=== PATIENT | female | born 1955 | race Caucasian/White ===

== ENCOUNTER 2019-03-20 09:47 | Day surgery (SDC) | payer MEDICARE, OTHER, SELFPAY ==
--- NOTE | 2019-03-20 | PATH_ITS ---
[facility] Accession Number: [id number] . 01 Material submitted: . endometrium - ENDOMETRIAL POLYP AND CURRETAGE . 02 Diagnosis: Endometrial Polyp, Curettage: Consistent with endometrial polyp. No evidence of atypical hyperplasia or malignancy. [facility]/03/22/2019 . 02 Electronically signed: . Clif Martino MD, PhD, Pathologist NPI- [id number] . 01 Gross description: . ENDOMETRIAL POLYP AND CURRETAGE: Received in formalin are minute fragments of mucoid and hemorrhagic material measuring 1.0 x 0.8 x 0.5 cm in aggregate. Submitted in toto in 1 cassette. /[facility] /[facility] . 02 Pathologist provided ICD-10: N84.0 . 02 CPT . 383896 Performed at: [address] [facility] [address] [id number] MD Mike Webster MD Phone: [phone] Performed at: 02 [facility] [address] [place], [place] [id number] MD Apple Arrington MD Phone: [phone]
[2019-03-20 12:12] VITALS: BP 126/65; PULSE 74; RESP 16; TEMP 37.3; O2SAT 97
[2019-03-20] MEDS: LACTATED RINGERS 1,000 ML 42 ML IV (12:25)
[2019-03-20 12:34] VITALS: BMI 31.9
--- NOTE | 2019-03-20 12:50 | PM.GYNHP.1 ---
History of Present Illness Reason for admission: vaginal bleeding (Postmenopausal) Narrative: Aide Najera is a 64 year old female with postmenopausal bleeding for hysteroscopy D&C [facility] Medical History (Updated 03/20/19 @ 12:53 by Arlene Ulloa, RN) Asthma (Acute) Ataxia of both legs (Acute) Cervical polyp (Acute) Constipation (Acute) Depression (Acute) Diverticulitis (Acute) Former smoker (Acute) History of endometrial biopsy (Acute) History of pneumonia (Acute) Hyperlipidemia (Acute) Hypertension (Acute) Multiple sclerosis (Acute) Postmenopausal bleeding (Acute) Urinary incontinence (Acute) Uterine fibroid (Acute) Surgical History (Updated 03/20/19 @ 12:54 by Arlene Ulloa RN) History of arthroscopy of left knee (Acute) History of colonoscopy (Acute 12/23/09) Social History household members: none Smoking Status: Former smoker Social History household members: none Smoking Status: Former smoker Meds Home Medications Medication Instructions Recorded Confirmed Type doxepin 100 mg PO BEDTIME #0 11/10/12 03/20/19 History venlafaxine [Effexor XR] 1 tab PO DIRECTED #0 11/10/12 03/20/19 History gabapentin [Neurontin] 300 mg PO HS #0 03/03/13 03/20/19 History modafinil 200 mg PO DAILY 03/20/19 03/20/19 History ocrelizumab 600 mg IV [id number] 03/20/19 03/20/19 History oxybutynin chloride 5 mg PO QID 03/20/19 03/20/19 History Allergies Allergy/AdvReac Type Severity Reaction Status Date / Time From BETASERON Allergy Mild Depression Uncoded 03/20/19 12:28 From COPAXONE AdvReac Mild Redness @ Uncoded 03/20/19 12:28 injection site occasionally Review of Systems Review of Systems All systems reviewed & are unremarkable except as noted in HPI and below Exam Vital Signs (past 8 hours): - 03/20/19 12:12 Temperature 99.1 F Pulse Rate 74 Respiratory Rate 16 Blood Pressure 126/65 Pulse Oximetry 97 Oxygen Delivery Method Room Air Narrative Exam Narrative: Chief Complaint: Postmenopausal bleeding Principal diagnosis: Postmenopausal bleeding Planned procedure: Hysteroscopy D&C History of present illness: Patient is a 63-year-old who had a 24 hr episode of postmenopausal bleeding. She had some lower abdominal cramping at the time. She underwent an ultrasound that showed small uterine fibroids and a thin endometrium but finding suspicious for a 5-6 mm endometrial polyp. Discussed with the patient options of monitoring with a follow-up ultrasound in 6 months as long she had no further bleeding, office endometrial biopsy, hysteroscopy D&C with removal of the presumed polyp. Patient opted for surgical procedure. Past medical history: Patient has MS Physical exam: HEENT exam within normal limits. Lungs are clear to auscultation and percussion. Heart is regular rate and rhythm no S3-S4 or murmurs. Abdomen is soft, nontender, no palpable organomegaly. Normal external genitalia, vagina, cervix. Uterus is not enlarged, nontender. No adnexal masses or tenderness. Patient is using a walker. Assessment & Plan (1) Postmenopausal bleeding: Current visit: Yes Status: Acute Assessment & Plan narrative: Patient with postmenopausal bleeding here for hysteroscopy D&C. Consent form was reviewed with the patient and signed. Risk of perforation, damage to internal structures, low risk for infection discussed with the patient. Consent form was signed and questions answered.
--- NOTE | 2019-03-20 13:45 | PM.PREOP ---
Pre-operative Note Interval Note History & Physical reviewed/Exam performed by Physician: Yes Changes to H&P: No
--- NOTE | 2019-03-20 13:53 | SUR.OPER ---
Lithotomy on padded OR bed, head on pillow, arms secured on padded arm boards at <90 degrees abduction. Legs secured in padded yellow fins stirrups.
[2019-03-20 14:39] VITALS: BP 138/57; PULSE 70; RESP 11; TEMP 36.2; O2SAT 96
--- NOTE | 2019-03-20 14:41 | PM.OP.1 ---
Operative Date/Time/Diagnoses Date of procedure: 03/20/19 Time of procedure: 14:41 Pre-op diagnosis: Postmenopausal bleeding with polyp on ultrasound Post-op diagnosis: same Procedure & Clinicians Procedure: Hysteroscopy with resection of polyps and endometrial curettage Same procedure as scheduled: Yes Indications: Postmenopausal bleeding with polyp seen on ultrasound Surgeon: Digna Terrazas Click Yes if Unassisted: Yes Anesthesia Type: General Operative Notes Findings: Very thin endometrium with two polyps, 1 near the right tubal ostia and the other at the internal os on the posterior wall Closure Type: not applicable Specimen(s): other (Two polyps and the endometrial curettage) Estimated Blood Loss (mL): 0 Blood products transfused: none Procedure in detail: The patient was brought to the operating room where she underwent general anesthesia. She was placed in low stirrups She was prepped and draped in usual sterile fashion with compression stockings on, warming in place, no antibiotics were indicated. Her bladder was drained with in and out catheter. A single-tooth tenaculum was placed on the anterior lip of the cervix and the uterus dilated to #8 Hegar dilator. The hysteroscope was placed into the uterus with a sorbitol solution running and under constant suction. The resecting loop set at 80 W of cutting was used to resect the polyps down to the level of the endometrium. A endometrial curettage was performed. The polyps and the endometrial curettage was sent to pathology. The patient went to recovery room in good condition counts of instruments and sponges were correct. The sorbitol solution I=O approximately 1000 mL. Complications: none Condition: stable Disposition: same day surgery Plan for aftercare: Treatment and follow-up based on biopsy results
[2019-03-20 14:44] VITALS: BP 133/59; PULSE 74; RESP 12; O2SAT 95
--- NOTE | 2019-03-20 14:45 | P.OP_ITS ---
Operative Date/Time/Diagnoses Date of procedure: 03/20/19 Time of procedure: 14:41 Pre-op diagnosis: Postmenopausal bleeding with polyp on ultrasound Post-op diagnosis: same Procedure & Clinicians Procedure: Hysteroscopy with resection of polyps and endometrial curettage Same procedure as scheduled: Yes Indications: Postmenopausal bleeding with polyp seen on ultrasound Surgeon: Digna Terrazas Click Yes if Unassisted: Yes Anesthesia Type: General Operative Notes Findings: Very thin endometrium with two polyps, 1 near the right tubal ostia and the other at the internal os on the posterior wall Closure Type: not applicable Specimen(s): other (Two polyps and the endometrial curettage) Estimated Blood Loss (mL): 0 Blood products transfused: none Procedure in detail: The patient was brought to the operating room where she underwent general anesth esia. She was placed in low stirrups She was prepped and draped in usual sterile fashion with compression stockings on, warming in place, no antibiotics were indicated. Her bladder was drained with in and out catheter. A single- tooth tenaculum was placed on the anterior lip of the cervix and the uterus dilated to #8 Hegar dilator. The hysteroscope was placed into the uterus with a sorbitol solution running and under constant suction. The resecting loop set at 80 W of cutting was used to resect the polyps down to the level of the endometrium. A endometrial curettage was performed. The polyps and the endometrial curettage was sent to pathology. The patient went to recovery room in good condition counts of instruments and sponges were correct. The sorbitol solution I=O approximately 1000 mL. Complications: none Condition: stable Disposition: same day surgery Plan for aftercare: Treatment and follow-up based on biopsy results
[2019-03-20 14:49] VITALS: BP 124/58; PULSE 73; RESP 13; O2SAT 96
[2019-03-20 15:09] VITALS: BP 108/64; PULSE 72; RESP 18; TEMP 36.6; O2SAT 98
--- NOTE | 2019-03-20 15:39 | SUR.PHASEII ---
1458 Assumed care, patient ambulated to the bathroom using her walker; stable on feet: voided w/o difficulty. Scant vag flow. Desires to go home. Declines fluids (has frequency/incon and [place] States that she has fluids in the car.)
--- NOTE | 2019-03-20 15:41 | SUR.PHASEII ---
1510 VSS, IV dc'd; clothing given.
--- NOTE | 2019-03-20 15:49 | SUR.PHASEII ---
correction on IV fluid - DC'd 1515, infusion ended
== END 2019-03-20 15:28 | disposition home or self-care (01) ==
PROVIDERS: Visit Provider Specialist
PROC: 0UDB8ZZ Extraction of Endometrium, Via Natural or Artificial Opening Endoscopic (ICD-10-PCS; CPT 58558; principal; 2019-03-20 12:15)
DX: N84.0 Polyp of corpus uteri (principal); J45.909 Unspecified asthma, uncomplicated; E78.5 Hyperlipidemia, unspecified; G35 Multiple sclerosis; R32 Unspecified urinary incontinence
CPT/HCPCS: 58558; 88305; J1100; J2405; J2704; J3010

== ENCOUNTER → 2019-08-03 10:52 | Outpatient (CLI) | payer MEDICARE, OTHER, SELFPAY ==
--- NOTE | 2019-08-03 | DI.MG.S_ITS ---
BILATERAL DIGITAL SCREENING MAMMOGRAM 3D/2D WITH CAD: 08/03/2019 CLINICAL: Routine screening. Family history of breast cancer. Comparison is made to exams dated: 02/24/2016 mammogram, 09/14/2014 mammogram, 06/19/2013 mammogram, and 05/24/2012 mammogram - [facility]. There are scattered fibroglandular elements in both breasts. Current study was also evaluated with a Computer Aided Detection (CAD) system. No significant masses, calcifications, or other findings are seen in either breast. There has been no significant interval change. IMPRESSION: NEGATIVE There is no mammographic evidence of malignancy. A 1 year screening mammogram is recommended. This exam was interpreted at Station ID: [id number]. NOTE: For mammograms, a report in lay terms will be sent to the patient. Approximately 15% of breast malignancies will not be visualized mammographically. In the management of a palpable breast mass, a negative mammogram must not discourage biopsy of a clinically suspicious lesion. Electronically Signed By: James mcdermott/gloria:08/04/2019 04:23:10 letter sent: Normal Exam ACR BI-RADS Category 1: Negative 3341F
== END ==
PROVIDERS: Visit Provider Family Medicine
DX: Z12.31 Encounter for screening mammogram for malignant neoplasm of breast (principal); Z80.3 Family history of malignant neoplasm of breast
CPT/HCPCS: 77063; 77067

== ENCOUNTER 2024-06-11 10:51 | Inpatient (IN) | payer MEDICARE, OTHER, SELFPAY ==
[2024-06-11] VITALS (13 sets, daily range): BP systolic 119–160; BP diastolic 42–79; PULSE 72–93; RESP 11–22; TEMP 36.4–37.2; O2SAT 93–100; BMI 30.4
--- NOTE | 2024-06-11 | DI.RAD.S_ITS ---
PROCEDURE: XR HIP W PEL IF DONE LT 2V INDICATIONS: INTRAMEDULLARY NAILING OF LT HIP TECHNIQUE: 5 low resolution intraoperative fluoroscopic spot films COMPARISON: None. FINDINGS: Sequential placement femoral nail and neck screw transfixing and intertrochanteric fracture. IMPRESSION: Fluoroscopic guidance Approved by: Jonnie Pitts M.D. on 06/11/2024 at 15:06
--- NOTE | 2024-06-11 12:09 | PC.NURSE ---
Day shift: Pt not in room or at this hospital at this time (approx 1200). ETA 1300.
--- NOTE | 2024-06-11 12:31 | PC.NURSE ---
Day shift: Pt in room at approx 1225.
--- NOTE | 2024-06-11 12:34 | PM.HP.1 ---
History of Present Illness History of Present Illness Date Patient Seen: 06/11/24 Time Patient Seen: 13:00 Date of Onset of Symptoms: 06/11/24 Chief complaint: L hip fracture Narrative: 69-year-old woman with multiple sclerosis, living independently in [place], normal using a 4 wheel walker, got up this morning to go to the bathroom without using her walker and fell on her left side, without known loss of consciousness or other injuries. She was able to scoot herself to her phone and called 911. She reported left hip as well as low back pain. She was given 50 mcg of fentanyl IV and brought to the emergency department in [place] where she was found to have a proximal left femur fracture. She was transferred to this hospital for surgical management. On arrival she denies other complaints, specifically denying chest pain, shortness of breath, abdominal pain or other recent infectious symptoms. She has a history of MS stating to age 32 when she presented with visual disturbances, and states she has global fatigue and weakness without specific deficits. [facility] Medical History Depression Urinary incontinence Constipation Diverticulitis History of pneumonia Hypertension Hyperlipidemia Asthma Ataxia of both legs Uterine fibroid Postmenopausal bleeding History of endometrial biopsy Multiple sclerosis Cervical polyp Former smoker Surgical History History of arthroscopy of left knee History of colonoscopy (12/23/09) Social History household members: none Smoking Status: Former smoker alcohol intake: never Meds Home Medications and Allergies Home Medications Medication Instructions Recorded Confirmed Type doxepin 100 mg capsule 100 mg PO BEDTIME ##0 11/10/12 06/11/24 History gabapentin 300 mg capsule 300 mg PO TID PRN Pain (Scale 03/03/13 06/11/24 History (Neurontin) Score 4-6) ##0 modafinil 200 mg tablet 200 mg PO DAILY PRN mobility 03/20/19 06/11/24 History oxybutynin chloride 5 mg tablet 5 mg PO BID 03/20/19 06/11/24 History baclofen 10 mg tablet 20 mg PO BID PRN Spasms 06/11/24 06/11/24 History venlafaxine 150 mg 150 mg PO DAILY 06/11/24 06/11/24 History capsule,extended release 24 hr Allergies Allergy/AdvReac Type Severity Reaction Status Date / Time glatiramer (copolymer 1) AdvReac Mild Redness @ Verified 06/11/24 11:09 [From Copaxone] injection site occasionally interferon beta-1b AdvReac Mild Depression Verified 06/11/24 11:09 [From Betaseron] Review of Systems Review of Systems ROS: Yes All systems reviewed with the patient and are negative except as otherwise documented Exam Narrative Exam Narrative: GENERAL: This is a well-nourished, well-developed patient, in no apparent distress. HEAD: Atraumatic. Normocephalic. No temporal or scalp tenderness. EYES: Pupils equal round and reactive. Extraocular motions intact. No scleral icterus. No injection or drainage. ENT: Mucous membranes pink and moist. NECK: Trachea midline. No JVD, bruits or lymphadenopathy. Supple, nontender, no meningeal signs. CARDIOVASCULAR: Regular rate and rhythm without murmurs, gallops, or rubs. RESPIRATORY: Clear to auscultation anteriorly. GASTROINTESTINAL: Abdomen soft, non-tender, nondistended. EXTREMITIES: No clubbing, cyanosis, or edema. MUSCULOSKELETAL: Left leg shortened and externally rotated. BACK: Nontender without deformity or crepitance. No flank tenderness. NEUROLOGIC: Alert, oriented, speech fluent, full upper and lower motor strength, no focal deficits evident, distal neurovascular status intact in left leg. DERMATOLOGIC: No rashes or skin lesions. Objective ECG Impression: Normal sinus rhythm at 78 beats per minute, possible left atrial enlargement, no ischemic changes. Normal EKG Imaging Left femur two view, pelvis, hip x-ray 06/11/2024:: Radiologist's impression: There is an acute displaced intertrochanteric fracture of the proximal left femur with a displaced fracture fragment measuring approximately 4.2 cm. There is no left hip dislocation. 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 impression: acute fracture of the proximal left femur as detailed above Chest x-ray: Radiologist's impression: The lungs are clear. The cardiomediastinal silhouette is unremarkable. There is no pneumothorax. There is no acute osseous abnormality. impression: No acute cardiopulmonary process CT lower extremity left without contrast:: Radiologist's impression: Again identified is an acute comminuted displaced fracture of the proximal left femur similar to prior x-ray. There is no dislocation. There are degenerative changes of the patient's left hip. impression: Acute fracture of the proximal left femur as previously described. Labs Labs: Moderate multilevel degenerative changes are noted in the patient's lumbar spine. There is facet arthrosis throughout the lower lumbar segments. There is no acute compression fracture. No significant malalignment. impression: 1. No acute fracture 2. Moderate multilevel degenerative changes are noted of the patient's lumbar spine Assessment & Plan Assessment & Plan narrative: 1. Acute fracture of the proximal left femur due to ground level fall. Operative repair per Orthopedics today. She is medically cleared as low risk. 2. Multiple sclerosis. Clinically stable with high fall risk. 3. Gait instability with repeated falls due to 2. Consult physical therapy postoperatively. 4. Depression. Continue routine medication. 5. DVT prophylaxis: Postoperative Lovenox is advised. 6. Code status: Full code. This is reviewed with the patient on admission who clearly states this medical preference. Time-Based Coding :: [TOTAL MINUTES] spent with patient and on the chart (including review of chart, obtaining history, exam, reviewing outside data, placing orders, documenting exam and treatment plan, and counseling patient) on [DATE]. Quality VTE Deep Vein Thrombosis/Pulmonary Embolism Present on Admission: No MIPS - Admit I confirm the patient?s Advance Care Plan is present, Code status is documented, Surrogate decision maker is in patient?s record [If Yes, STOP here]: Yes MIPS - Meds 'Current medications' to include all prescriptions, [id number] products, herbals, cannabis/cannabidiol products, and vitamin/mineral/dietary (nutritional) supplements. I have utilized all available resources to obtain, update, or review the patient?s current medications. [If Yes, STOP here]: Yes PROFEE Charge Codes Initial inpatient/observation care: [id number]
[2024-06-11] MEDS: LACTATED RINGERS 1,000 ML 100 ML IV ×2 (12:48→17:25)
[2024-06-11] MEDS: HYDROMORPHONE 0.5 MG INJ IV (12:51)
--- NOTE | 2024-06-11 13:11 | SUR.OPER ---
Supine on padded Geneva table with bilateral legs secured in padded positioning boots and suspended in positioning spars, operative leg in traction per surgeon. Head on one pillow. Arm on non-operative side secured on padded armboard <90 degrees abduction. Arm on operative side padded and resting across chest then secured with tape over sheet. Padded perineal post in place per surgeon.
[2024-06-11] MEDS: LACTATED RINGERS 1,000 ML 42 ML IV ×2 (13:42→15:52)
--- NOTE | 2024-06-11 13:49 | P.CONS_ITS ---
History of Present Illness Consult details Date Patient Seen: 06/11/24 Time Patient Seen: 13:49 Chief complaint: L hip fracture Reason for consult: Left hip fracture Requesting provider: Fam Whitmore Narrative: 69-year-old female with medical history including multiple sclerosis and asthma had a ground level fall early this morning [place] home [place]. She was unable to ambulate. She was brought to [facility] emergency room diagnosed with a displaced left intertrochanteric hip fracture. She was transferred to [facility] due to other hospital on diversion. And presents today for care. She denies any other injury when she fell denies any loss of consciousness or head injury. She has not had any recent flares. She endorses some dry throat and cough. No fevers or chills. She typically uses a walker for ambulation and has for years. She does not have any major heart or lung problems. She does not take any blood thinners. She has been NPO since before midnight. Meds Home Medications and Allergies Home Medications Medication Instructions Recorded Confirmed Type doxepin 100 mg capsule 100 mg PO BEDTIME ##0 11/10/12 06/11/24 History gabapentin 300 mg capsule 300 mg PO TID PRN Pain (Scale 03/03/13 06/11/24 History (Neurontin) Score 4-6) ##0 modafinil 200 mg tablet 200 mg PO DAILY PRN mobility 03/20/19 06/11/24 History oxybutynin chloride 5 mg tablet 5 mg PO BID 03/20/19 06/11/24 History baclofen 10 mg tablet 20 mg PO BID PRN Spasms 06/11/24 06/11/24 History venlafaxine 150 mg 150 mg PO DAILY 06/11/24 06/11/24 History capsule,extended release 24 hr Allergies Allergy/AdvReac Type Severity Reaction Status Date / Time glatiramer (copolymer 1) AdvReac Mild Redness @ Verified 06/11/24 11:09 [From Copaxone] injection site occasionally interferon beta-1b AdvReac Mild Depression Verified 06/11/24 11:09 [From Betaseron] Review of Systems Review of Systems Narrative: Cough, left hip pain ROS: Yes All systems reviewed with the patient and are negative except as otherwise documented Exam Vital Signs (past 8 hours): - 06/11/24 10:59 06/11/24 13:21 06/11/24 13:30 Temperature 98.2 F 98.2 F Pulse Rate 72 72 Respiratory Rate 18 17 Blood Pressure 128/61 128/61 Pulse Oximetry 98 98 Oxygen Delivery Method Room Air Oxygen Flow Rate 0 0 06/11/24 13:39 Temperature 97.6 F Pulse Rate 72 Respiratory Rate 16 Blood Pressure 119/55 L Pulse Oximetry 98 Oxygen Delivery Method Room Air Oxygen Flow Rate Oxygen Delivery Method Room Air Oxygen Flow Rate 0 Narrative Exam Narrative: Alert oriented no acute distress lying in the hospital bed. Heart regular rate and rhythm Lungs clear slight cough Left lower extremity shortened and externally rotated. Dorsiflexion plantar flexion intact. Brisk capillary refill. Pain around the hip. Remainder of motor exam deferred due to known hip fracture. Right lower extremity is benign demonstrates dorsiflexion plantar flexion. Moving bilateral upper extremities without limitation. Laurent in place. Objective Imaging Outside x-rays were reviewed two views of the hip AP and lateral demonstrate displaced intertrochanteric hip fracture with involvement of the lesser t: My impression: Outside x-rays were reviewed two views of the hip left AP and lateral demonstrate displaced intertrochanteric hip fracture with involvement of the lesser trochanter. PFSH Medical History Depression Urinary incontinence Constipation Diverticulitis History of pneumonia Hypertension Hyperlipidemia Asthma Ataxia of both legs Uterine fibroid Postmenopausal bleeding History of endometrial biopsy Multiple sclerosis Cervical polyp Former smoker Surgical History History of arthroscopy of left knee History of colonoscopy (12/23/09) Social History household members: none Tobacco & Substance Use Smoking Status: Former smoker alcohol intake: never Assessment & Plan Assessment and plan (1) Hip fracture, left: Qualifiers: Encounter type: initial encounter Fracture type: closed Qualified Code(s): S72.002A - Fracture of unspecified part of neck of left femur, initial encounter for closed fracture Status: Acute Plan Displaced left intertrochanteric hip fracture. Patient was transferred for surgical treatment. The risks and benefits of surgery were discussed. Informed consent was signed. The patient was indicated for operative fixation of her left hip fracture in order to allow immediate weight-bearing and mobilization help avoid the morbidity mortality associated with prolonged bed rest. We discussed risks of bleeding, blood clots, infection, nonunion, malunion, persistent pain, posttraumatic arthritis, stroke heart attack , pneumonia. Consent was signed. Plan OR today. Assessment & Plan narrative: High-level medical decision-making. Decision for inpatient admission for surgical treatment of hip fracture, major orthopedic surgery. Due to patient's previous use of assistive devices postoperatively, the same expected postoperatively. Time-Based Coding :: [TOTAL MINUTES] spent with patient and on the chart (including review of chart, obtaining history, exam, reviewing outside data, placing orders, documenting exam and treatment plan, and counseling patient) on [DATE].
[2024-06-11] MEDS: CEFAZOLIN 2 GM/100 ML PREMIX 100 ML IV ×2 (14:10→21:17)
[2024-06-11] MEDS: TRANEXAMIC ACID 1,000 MG in SODIUM CHLORIDE 0.9% 100 ML 200 MG IV (14:10)
[2024-06-11] MEDS: BUPIVACAINE 0.25% (PF) 30 ML, EPINEPHrine 0.15 MG INJ (14:48)
--- NOTE | 2024-06-11 15:22 | PM.OP.1 ---
Operative Date/Time/Diagnoses Date of procedure: 06/11/24 Time of procedure: 15:22 Pre-op diagnosis: Left intertrochanteric hip fracture Post-op diagnosis: same Procedure & Clinicians Procedure: Fixation left intertrochanteric hip fracture with cephalomedullary nail CPT code 56911, left Same procedure as scheduled: Yes Indications: 69-year-old female with ground level fall and displaced intertrochanteric femur fracture. Indicated for surgical treatment. The risks and benefits of the procedure have been discussed with the patient and given the opportunity to ask questions. The risks of surgery include but are not limited to infection, malunion, nonunion, persistence of pain, damage to nerves and blood vessels, posttraumatic arthritis, DVT, PE, cardiopulmonary complications and . The patient expressed a thorough understanding of the risks and benefits of surgery and has elected to proceed. Consent was signed. Surgeon: Alysha Elizondo Click Yes if Unassisted: Yes Anesthesia Type: General and Local Operative Notes Findings: Displaced intertrochanteric hip fracture, left Closure Type: primary Specimen(s): none sent Prosthetic devices, grafts, tissues, transplants, or devices: Soto and nephew InterTAN esteban 10 x 18 Screw combination 100/95 Distal interlock screw 35 x 5 Estimated Blood Loss (mL): 100 Blood products transfused: none Tourniquet time (min): 0 Procedure in detail: Procedure cephalomedullary nail intertrochanteric hip fracture the CPT code 21522 Side: Left Implant Soto and Nephew 11.5 x 18 cm cephalomedullary nail intertan Procedure: The patient was seen and the site of surgery was marked in the preoperative area. This was the left hip. Patient was brought to the operating room and placed on the operative table and general anesthesia was administered. The patient was positioned on the fracture table in standard fashion with a well-padded boots and a padded peroneal post. An SCD was on the contralateral leg. A formal time-out was called to confirm the patient's side and site of surgery administration of preoperative antibiotics. 1 g of TXA was given for hemostasis. All were in agreement. The operative leg was then gently manipulated under fluoroscopic guidance to obtain a closed reduction in near anatomic alignment. At this point the operative extremity was prepped and draped in the standard sterile manner. The starting point was marked out using fluoroscopic guidance and marked on the skin. A guidewire was placed percutaneously and the starting point was obtained. Incision was made over the guidewire. An opening drill was inserted to the level of the lesser trochanter. The opening Reamer and guidewire were then removed. An 18 cm cephalomedullary nail was selected. The 10 x 18 cm nail was then slid into the canal. The nail was advanced to the proper depth and rotation. The guide for the cephalomedullary screw was then inserted into the external handle. An incision was made and the guide was placed down to the bone. A guidewire was placed to the proper depth into the femoral head and this was confirmed on AP and lateral imaging. The tip apex distance was evaluated and appropriate. This was measured. Next the outer cortex was drilled for the interlocking screw and the anti rotation bar was placed. The cephalomedullary screw length was then measured off the drill again. A 100 mm lag screw was selected and the corresponding interlocking compression screw. A guidewire was then over drilled and the lag screw placed. The anti rotation bar was removed and then the locking compression screws were placed and confirmed on biplanar fluoroscopy. The integrated compression screw was tightened. Attention was turned to the distal interlock. This was placed with the guide in the standard technique. AP and lateral images were captured in the or confirming alignment hardware placement. Wounds were irrigated and closed in layers with 0 Vicryl in the deep fascia. 2- 0 in the subcutaneous tissue and benjamin in the skin. 0.25% Marcaine with epinephrine was injected into the incision sites for local anesthetic. Sterile dressings were applied. There no immediate complications. Surgical counts were correct. The patient tolerated the procedure well was taken to recovery room for formal radiographs. Postoperative plan. Weightbear as tolerated to the surgical extremity. Work with physical therapy and occupational therapy. Discharge by primary team. Likely detention. Monitor hemoglobin and hematocrit postoperatively may require transfusion if needed. Encourage incentive spirometry. SCDs and Lovenox for DVT prophylaxis. Complications: none Post-operative Condition: stable Disposition: PACU Plan for aftercare: Weightbear as tolerated left lower extremity. Lovenox 40 mg subQ x4 weeks for DVT prophylaxis unless mobilizing well then aspirin 81 mg b.i.d. would be a reasonable alternative. Dispo per primary. Follow up [facility] in 2 weeks for staple removal and repeat x-rays. Has a waterproof Aquacel dressing in place. May shower with the dressing. Change if needed or saturated.
[2024-06-11] MEDS: HYDROMORPHONE 1 MG INJ IV ×2 (15:35→15:45)
[2024-06-11] MEDS: ONDANSETRON 4 MG/2 ML INJ IV (15:35)
[2024-06-11] MEDS: OXYCODONE IR 5 MG TABLET PO ×2 (15:47→21:17)
[2024-06-11] MEDS: IBUPROFEN 400 MG TABLET PO ×3 (17:25→23:56)
[2024-06-11] MEDS: ACETAMINOPHEN 325 MG TABLET 650 MG PO ×2 (17:25→21:19)
[2024-06-11] MEDS: SENNOSIDES 8.6 MG TABLET 17.2 MG PO (20:11)
[2024-06-11] MEDS: DOCUSATE 100 MG CAPSULE PO (20:11)
[2024-06-11] MEDS: OXYBUTYNIN 5 MG TABLET PO (20:11)
[2024-06-11] MEDS: BACLOFEN 10 MG TABLET 20 MG PO (23:56)
[2024-06-12 00:09] VITALS: BP 119/32; PULSE 85; RESP 18; TEMP 37.8; O2SAT 95
[2024-06-12] MEDS: IBUPROFEN 400 MG TABLET PO ×5 (04:36→20:18)
[2024-06-12] MEDS: ACETAMINOPHEN 325 MG TABLET 650 MG PO ×4 (04:37→22:28)
[2024-06-12] MEDS: OXYCODONE IR 5 MG TABLET PO ×2 (04:37→08:40)
[2024-06-12] MEDS: CEFAZOLIN 2 GM/100 ML PREMIX 100 ML IV (05:33)
[2024-06-12 06:07] LABS: Add Manual Diff / Slide Review NO; Basophils Absolute Auto 0 /uL (0-100); Basophils Percent Auto 0.1 % (0-2); Eosinophils Absolute Auto 0 /uL (0-450); Eosinophils Percent Auto 0.1 % (2-4); Lymphocytes Absolute Auto 1500 /uL (1100-4500); Lymphocytes Percent Auto 12.2 % (25-40); Mean Corpuscular HGB Conc 33.6 % (30-36); Mean Corpuscular Hemoglobin 30.3 PG (26-34); Mean Corpuscular Volume 90.3 fL (80-100); Monocytes Absolute Auto 1300 /uL (0-900); Monocytes Percent Auto 10.5 % (3-14); Neutrophils Absolute Auto 9200 /uL (1500-7000); Neutrophils Percent Auto 77.1 % (50-75); Platelet Count 193 X10^3/uL (150-400); Red Blood Cell Count 2.98 X10^6/uL (4.0-5.2); Red Cell Distribution Width 14.7 % (11.6-14.8); White Blood Cell Count 11.9 X10^3/uL (4.5-11.0)
[2024-06-12 06:27] LABS: BUN Creatinine Ratio 26.4 (6-22); Blood Urea Nitrogen 19 mg/dL (7-17); Calcium 8.1 mg/dL (8.4-10.2); Carbon Dioxide 26 mmol/L (22-32); Chloride 112 mmol/L (98-107); Estimated Glomerular Filt Rate > 60 mL/min (>60); Glucose 119 mg/dL (80-110); HEMOLYSIS < 15 (0-50); Potassium 4.2 mmol/L (3.4-5.1); Sodium 138 mmol/L (137-145)
[2024-06-12 08:00] VITALS: BP 131/60; PULSE 79; RESP 18; TEMP 37; O2SAT 97
[2024-06-12] MEDS: VENLAFAXINE ER 75 MG CAP 150 MG PO (08:39)
[2024-06-12] MEDS: DOCUSATE 100 MG CAPSULE PO ×2 (08:40→20:18)
[2024-06-12] MEDS: ENOXAPARIN 40 MG/0.4 ML SYRINGE SUBCUT (08:40)
[2024-06-12] MEDS: OXYBUTYNIN 5 MG TABLET PO ×2 (08:40→20:19)
[2024-06-12] MEDS: polyethylene glycoL 3350 17 GM POWD.PACK PO (08:41)
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
--- NOTE | 2024-06-12 11:00 | PT.IIE ---
Current Diagnoses Fracture of unspecified part of neck of left femur, initial encounter for closed fracture (06/11/24) Surgery Performed Operation Date: 06/11/24 15:00 Actual Procedures p Intramedullary Nailing Femur(Left) - Alysha Elizondo MD Surgical History (Last Reviewed 06/11/24 @ 13:50 by Alysha Elizondo MD) History of arthroscopy of left knee History of colonoscopy (12/23/09) Medical History (Last Reviewed 06/11/24 @ 13:50 by Alysha Elizondo MD) Asthma Ataxia of both legs Cervical polyp Constipation Depression Diverticulitis Former smoker History of endometrial biopsy History of pneumonia Hyperlipidemia Hypertension Multiple sclerosis Postmenopausal bleeding Urinary incontinence Uterine fibroid Physical Therapy Inpatient Evaluation/Re-Eval M1 PT/OT-IP Prior Functional Status Start: 06/12/24 10:41 Freq: NEEDED Status: Active Protocol: Document 06/12/24 10:15 MB (Rec: 06/12/24 10:59 MB [id number]) Medical Review Prior Functional Status Medical History Reviewed Yes Diet/Fluid Consistency Regular Communication Pt has some challenges communicating what she is feeling as far as pain, questions about other previous falls Mobility and Gait Gait trains in home with 4WW and takes taxi to store and uses cart, pt does not drive Activities of Daily Living and IADL's Pt reports mod I with ADLs, see OT note for any other details Social History Household Members none Living Arrangements House Number of Floors (Floors) One Floor Number of Stairs To Enter/Railing? Ramp to enter Home Environment Walk in Shower,Tub/Shower Home Equipment Four Wheel Walker,Shower Seat with Backrest,Hand Held Shower ,Grab Bars In Shower Additional Social History Comment Pt is on disability M2 PT-IP Current Condition Start: 06/12/24 10:41 Freq: NEEDED Status: Active Protocol: Document 06/12/24 10:15 MB (Rec: 06/12/24 10:59 MB [id number]) Physical Therapy Current Condition Current Condition Evaluation Date 06/12/24 Treatment Diagnosis Fall, left intertrochanteric fracture and nailing M3 PT-IP Subjective Start: 06/12/24 10:41 Freq: NEEDED Status: Active Protocol: Document 06/12/24 10:15 MB (Rec: 06/12/24 10:59 MB [id number]) Subjective Physical Therapy Visit Type Type Initial Evaluation Visit Start Time 10:15 Visit Stop Time 10:30 Number of BRAZER HELPER INDUCTION Visits 0 Physical Therapy Visit Comments Patient Comments Pt is agreeable to therapy, occ appears like she may cry, is not very communicative about what she is feeling at times. Therapy Pain Assessment Pain When Pain Assessed At Rest Pain Present Pain Present Pain Reported Location Left Hip Intensity 2 Scale Used Numeric (0 - 10) Pain Management Techniques Distraction,Re-positioning M4 PT-IP Mobility and Gait Start: 06/12/24 10:41 Freq: NEEDED Status: Active Protocol: Document 06/12/24 10:15 MB (Rec: 06/12/24 10:59 MB [id number]) PT-Bed Mobility Assessment Rolling Level of Assist Minimal Assistance,1 Person Assistance Supine to Sit Supine to Sit Minimal Assistance,1 Person Assistance,Bedrails Scooting Scooting to Edge of Bed Moderate Assistance PT-Transfer Assessment Sit to and From Stand Sit to and from Stand Moderate Assistance,2 Person Assistance,Use of Upper Extremities Equipment Transfer Assistive Device Gait Belt,Front Wheeled Walker Orthotic/Prosthetic Devices or Brace: No Transfers Transfer Destination Chair Transfer Technique Squat Pivot Transfer Ability Level of Assist Moderate Assistance,2 Person Assistance,Use of Upper Extremities Comments Mobility Comments Pt has dysmetric movements in LUE greater than LEs and core muscles with all mobility that could be described as mild chorea-like movements. Pt frequently lets go of bed rail and walker and tends to have poorly controlled core and balance awareness in sitting and standing at walker. She partially flings back posteriorly in sitting x2 when letting go of bed hand rest to left and RW. Similarly, she sits down without warning on bed without hand support x1. Pt cannot demonstrate lifting left foot to advance forward today, scoot side step to right x1 with RW and +2 max A. Squat transfer to right bed to chair at end of treatment. Poor ability to scoot in chair , decreased awareness of hand placement and using hands to scoot back, more noticeable left hand and OT assists with lifting left leg for scooting back in chair Gait Assessment Gait Gait Assistance Required: Maximum Assistance,2 Person Assist Distance (Feet) 1 Able to Maintain Weight Bearing Status Yes During Gait Assistive Devices Assistive Device Gait Belt,Front Wheeled Walker Orthotic/Prosthetic Devices or Brace: No Gait Deviations General Gait Pattern Antalgic,Ataxic,Decreased Stride Length,Decreased Feet Clearance,Flexed Trunk,Step-to Gait,Wide Based Gait Factors Limiting Gait Function Factors Limiting Gait Function Abnormal Tonal Influences, Decreased Activity Tolerance, Decreased Strength,Difficulty Following Directions, Incoordination,Limited Range of Motion,Pain,Poor Balance, Poor Safety Awareness Comments Gait Comments See comments above, very poor scooting steps to the right PT-Balance Assessment Sitting Balance and Reactions Static Sitting Balance Ability Poor Dynamic Sitting Balance Ability Poor Standing Balance and Reactions Static Standing Balance Ability Poor Dynamic Standing Balance Ability Poor Device Used RW M5 PT-IP Objective Assessments Start: 06/12/24 10:41 Freq: NEEDED Status: Active Protocol: Document 06/12/24 10:15 MB (Rec: 06/12/24 10:59 MB [id number]) Orientation Orientation/Cognition Level of Alertness [place] Safety Awareness Decreased Safety Awareness Comments PT arrives after OT asks all orientation questions and OT reports pt is A&Ox4. Pt demonstrates very poor body awareness and command- following during mobility assessment Gross Range of Motion Upper Extremity ROM Impairments Defer to OT Lower Extremity ROM Assessment Left Impaired Strength Lower Extremity Strength Assessment Left Impaired Ankle 4/5 Comments Strength Comments PT does not MMT left hip and knee and RLE is grossly 4/5 with MMT in chair Coordination Assessment Gross Coordination Gross Coordination Impaired Assessment Coordination Comments Functional movements are dysmetric with decreased left hand awareness with STS, scooting and holding onto walker. Movements appears mildly like chorea-type movement Sensation Assessment Comments Sensation Comments Did not test M6 PT-IP Treatment Start: 06/12/24 10:41 Freq: NEEDED Status: Active Protocol: Document 06/12/24 10:15 MB (Rec: 06/12/24 10:59 MB [id number]) Physical Therapy Treatment Exercises Exercises Ankle Pumps Education Education Provided Weight Bearing Status,Safety M7 PT-IP Assessment and Plan Start: 06/12/24 10:41 Freq: NEEDED Status: Active Protocol: Document 06/12/24 10:15 MB (Rec: 06/12/24 10:59 MB [id number]) PT Summary Assessment and Plan Potential Rehabilitation Potential Fair Status of Condition at Evaluation Evolving Summary Impairments Pain,ROM,Strength,Balance, Coordination,Cognition,Bed Mobility,Transfers,Gait, Activity Tolerance Progress Towards Goals Slow Progress due to Pain,Slow Progress - Other Assessment Summary Pt is a 69 y/o female presenting with decreased mobility, increased pain, poor safety awareness and functional coordination s/p left hip intertrochanteric fracture and nailing. Pt requires heavy 2 person assistance for STS and squat pivot transfer to the right to chair. Pt with history of MS and ataxia of both legs. Pt is unable to report if one leg or arm is stronger than the other at baseline. Pt's movements, especially left UE, appear somewhat chorea-like with decreased control of arm on walker and frequent, uncontrolled movement of left arm. This makes using walker for standing and stepping challenging today. Recommend SNF at d/c. Goals Bed Mobility Goal Independent Transfer Goal Independent,Front Wheeled Walker Gait Goal Independent,Front Wheel Walker Gait Distance 75 Days to Meet Goals 5 Frequency of Treatment Frequency Of Treatment Once a Day Other frequency May consider increasing to twice a day as appropriate Treatment Plan Physical Therapy Treatment Plan Bed Mobility Training,Transfer Training,Gait Training, Therapeutic Exercise,Balance Retraining,Post Op Education, Discharge Planning,Hot or Cold Pack,Neuromuscular Re-ed, Coordination Retraining,Manual Therapy Weight Bearing Status Weight Bearing Status Weight Bear as Tolerated Recommendations To Nursing Amount of Assist Needed Total Assistance Discharge Recommendations PT Discharge Recommendations SNF Rehab Transportation Needs at Discharge Wheelchair/Cabulance
[2024-06-12 12:00] VITALS: BP 120/54; PULSE 88; RESP 18; TEMP 37.2; O2SAT 95
--- NOTE | 2024-06-12 12:42 | CM.DANOTE ---
Addendum entered by MARYAM Carty 06/12/24 15:31: Per Brittney at [facility], could accept Wednesday. Their facility does not have transportation. Will need to arrange on our end. Per Kelly at [facility], also able to accept pt Wednesday. PASRR needed. CM team will need to finalize preference/arrange transport. Likely dc Wednesday if medically stable. SL Addendum entered by MARYAM Carty 06/12/24 14:59: Per Pt, preference for SNF placement in order is [facility], [facility], and then [facility]. Per Brittney at [facility] (p [phone] and f [phone]) they have one bed open and willing to review. BECKIE Guerrero kindly agreed to fax referral information. Per Kelly at , (p [phone]) bed availability and willing to review. BECKIE Guerrero kindly agreed to send referral information. Per chart review, 3rd midnight would have her ready for dc Wednesday. P: DC to SNF ([facility] vs [facility]) pending acceptance. PASRR needed. CM team will continue to follow closely SL Original Note: DCP Assessment Note Pt is a 69yo F here following left hip fracture from GLF. Pt is POD1. Lives alone in [place]. PCP None listed Payer Medicare and [employer] reviewed EMR. Per PT/OT, rec SNF at this time. [employer] met with pt in room. Pt resting in chair. Reports hx of LCCSV. Reports wanting to just stay here until able to dc home. [employer] explained that someone cannot remain in the acute care setting if they are more appropriate for lower level of care. Pt frustrated by this. [employer] gave pt list of Medicare approved clinics. Pt will review list and give this [employer] top 3 choices for preference for placement. P: CM team will place SNF referrals based on pt preference. PASRR needed. CM team will continue to follow closely MARYAM Carty Discharge Planning/Care Management Advanced directive, confirm from FAMILY Start: 06/11/24 12:57 Freq: Q24H Status: Active Protocol: Document 06/11/24 12:57 MM (Rec: 06/11/24 13:04 MM [id number]) Advance Directive, confirm on record Time 13:04 Person contacted pt Copy received No Advanced directive available on record No CM Discharge Assessment Start: 06/12/24 12:40 Freq: Status: Active Protocol: Document 06/12/24 12:40 SL (Rec: 06/12/24 12:42 SL [id number]) Discharge Planning Assessment Assigned Facial Operator MARYAM Dasilva DPOA/Assigned Designee Name Jewell, family Contact Information [phone] Advance Directives? Yes Advance Directives on File No History Provided By Patient Prior Living Arrangements House Household Members none Is patient alert and oriented? Yes Patient/Family Preference [facility] Facility Discharge Plan [facility] Facility Transportation Arrangement facility transport Referrals Initiated [facility] Review Status In Process Please Provide Date Initial DC 06/12/24 Assessment Was Performed Next Review Type Continued Stay Review
--- NOTE | 2024-06-12 13:31 | P.PN_ITS ---
Subjective Subjective Date Patient Seen: 06/21/24 Time Patient Seen: 13:31 Interval history: Aide is lying in bed, quite distressed, says she can't move her left leg at all. During our conversation we worked on it a little bit, and she was feeling more confident as we spoke. She lives independently in [place] and uses a walker at baseline. She has a history of MS. Exam Vital Signs (past 8 hours): - 06/12/24 08:00 06/12/24 12:00 Temperature 98.6 F 99 F Pulse Rate 79 88 Respiratory Rate 18 18 Blood Pressure 131/60 120/54 L Pulse Oximetry 97 95 Oxygen Flow Rate 0 0 Oxygen Delivery Method Room Air Oxygen Flow Rate 0 Narrative Exam Narrative: 3/5 hip flexors, 4/5 quadriceps and hamstrings, 5/5 DF, PF, EHL on left. Sensation to light touch intact throughout LLE, calf soft and compressible. Aquacel dressing w/ scant bloody drainage in the distal portion. Objective Labs 06/12/24 05:48 06/12/24 05:48 Labs: Laboratory Results - last 24 hr 06/12/24 05:48 WBC 11.9 H RBC 2.98 L Hgb 9.0 L Hct 27.0 L MCV 90.3 MCH 30.3 MCHC 33.6 RDW 14.7 Plt Count 193 Neut % (Auto) 77.1 H Lymph % (Auto) 12.2 L [place] % (Auto) 10.5 Eos % (Auto) 0.1 L Baso % (Auto) 0.1 Neut # (Auto) 9200 H Lymph # (Auto) 1500 [place] # (Auto) 1300 H Eos # (Auto) 0 Baso # (Auto) 0 Sodium 138 Potassium 4.2 Chloride 112 H Carbon Dioxide 26 BUN 19 H Creatinine 0.72 Estimated GFR > 60 BUN/Creatinine Ratio 26.4 H Glucose 119 H Calcium 8.1 L PFSH Medical History Depression Urinary incontinence Constipation Diverticulitis History of pneumonia Hypertension Hyperlipidemia Asthma Ataxia of both legs Uterine fibroid Postmenopausal bleeding History of endometrial biopsy Multiple sclerosis Cervical polyp Former smoker Surgical History History of arthroscopy of left knee History of colonoscopy (12/23/09) Social History household members: none Smoking Status: Former smoker alcohol intake: never Assessment & Plan Post-op Assessment and plan (1) Status post hip surgery: Assessment and Plan narrative: 1) Continue PT. WBAT to left leg. She has had one session since surgery, and SNF was recommended. 2) Currently receiving enoxaparin for VTE prophylaxis. If she becomes more mobile, she can be changed to ASA 81mg BID for 6 weeks rather than enoxaparin for 4 weeks. 3) Disposition, VTE prophylaxis, pain management per hospitalist service. 4) F/u in office w/ PA or Dr Elizondo at [facility] in 10-14 days for wound check, in 6 weeks w/ Dr Elizondo for repeat imaging. Postoperative Procedures: Procedures Operation Date: 06/11/24 15:00 Actual Procedure Side Surgeon p Intramedullary Nailing Femur Left Alysha Elizondo MD Postoperative day: 1 Quality VTE Deep Vein Thrombosis/Pulmonary Embolism Present on Admission: No
[2024-06-12 16:00] VITALS: BP 98/68; PULSE 97; RESP 18; TEMP 36.9; O2SAT 94
[2024-06-12] MEDS: BISACODYL 10 MG SUPP PR (16:29)
--- NOTE | 2024-06-12 18:27 | P.PN_ITS ---
Subjective Subjective Interval history: Ongoing left hip pain. Difficult to weight bear. No chest pain or shortness a breath. Exam Vital Signs (past 8 hours): - 06/12/24 12:00 06/12/24 16:00 Temperature 99 F 98.4 F Pulse Rate 88 97 H Respiratory Rate 18 18 Blood Pressure 120/54 L 98/68 Pulse Oximetry 95 94 Oxygen Flow Rate 0 0 Oxygen Delivery Method Room Air Oxygen Flow Rate 0 Narrative Exam Narrative: NAD, alert and oriented. Fluent speech. Lungs are clear, normal rate and effort. Heart is regular, no murmur gallop or rub. Abdomen is soft, non distended. Extremities are free of edema. Objective Labs 06/12/24 05:48 06/12/24 05:48 Labs: Laboratory Results - last 24 hr 06/12/24 05:48 WBC 11.9 H RBC 2.98 L Hgb 9.0 L Hct 27.0 L MCV 90.3 MCH 30.3 MCHC 33.6 RDW 14.7 Plt Count 193 Neut % (Auto) 77.1 H Lymph % (Auto) 12.2 L [place] % (Auto) 10.5 Eos % (Auto) 0.1 L Baso % (Auto) 0.1 Neut # (Auto) 9200 H Lymph # (Auto) 1500 [place] # (Auto) 1300 H Eos # (Auto) 0 Baso # (Auto) 0 Sodium 138 Potassium 4.2 Chloride 112 H Carbon Dioxide 26 BUN 19 H Creatinine 0.72 Estimated GFR > 60 BUN/Creatinine Ratio 26.4 H Glucose 119 H Calcium 8.1 L PFSH Medical History Depression Urinary incontinence Constipation Diverticulitis History of pneumonia Hypertension Hyperlipidemia Asthma Ataxia of both legs Uterine fibroid Postmenopausal bleeding History of endometrial biopsy Multiple sclerosis Cervical polyp Former smoker Surgical History History of arthroscopy of left knee History of colonoscopy (12/23/09) Social History household members: none Smoking Status: Former smoker alcohol intake: never Assessment & Plan Assessment & Plan narrative: 1. Acute fracture of the proximal left femur due to ground level fall. Operative repair per Orthopedics today. She is medically cleared as low risk. 2. Multiple sclerosis. Clinically stable with high fall risk. 3. Gait instability with repeated falls due to 2. Consult physical therapy postoperatively. 4. Depression. Continue routine medication. 5. DVT prophylaxis: Postoperative Lovenox is advised. 6. Code status: Full code. This is reviewed with the patient on admission who clearly states this medical preference. PLAN: Continue DVT prophylaxis and ongoing rehabilitation efforts. She will need long term facility rehabilitation transition. Time-Based Coding :: 20 min spent with patient and on the chart (including review of chart, obtaining history, exam, reviewing outside data, placing orders, documenting exam and treatment plan, and counseling patient) on 06/12. Quality VTE Deep Vein Thrombosis/Pulmonary Embolism Present on Admission: No
[2024-06-12 20:00] VITALS: BP 126/51; PULSE 82; RESP 19; TEMP 37.2; O2SAT 96
[2024-06-12] MEDS: SENNOSIDES 8.6 MG TABLET 17.2 MG PO (20:18)
[2024-06-12] MEDS: BACLOFEN 10 MG TABLET 20 MG PO (22:28)
[2024-06-13 00:27] VITALS: BP 124/52; PULSE 79; RESP 19; TEMP 37.1; O2SAT 94
[2024-06-13] MEDS: ACETAMINOPHEN 325 MG TABLET 650 MG PO ×4 (05:49→22:41)
[2024-06-13] MEDS: IBUPROFEN 400 MG TABLET PO ×5 (05:50→20:22)
[2024-06-13 06:08] VITALS: BP 142/76; PULSE 91; RESP 19; TEMP 37.2; O2SAT 96
[2024-06-13] MEDS: BACLOFEN 10 MG TABLET 20 MG PO ×2 (06:12→20:22)
--- NOTE | 2024-06-13 07:21 | PM.PN.1 ---
Subjective Subjective Interval history: She would some leg spasms this morning which improved with baclofen. Otherwise she was doing well and eager to work with physical therapy today. She will likely choose [facility] for proximity to her family and [place]. Exam Vital Signs (past 8 hours): - 06/13/24 00:27 06/13/24 06:08 Temperature 98.8 F 98.9 F Pulse Rate 79 91 H Respiratory Rate 19 19 Blood Pressure 124/52 L 142/76 H Pulse Oximetry 94 96 Oxygen Flow Rate 0 0 Oxygen Delivery Method Room Air Oxygen Flow Rate 0 Narrative Exam Narrative: NAD, alert and oriented. Fluent speech. Lungs are clear, normal rate and effort. Heart is regular, no murmur gallop or rub. Abdomen is soft, non distended. Extremities are free of edema. Objective Labs 06/13/24 07:32 06/13/24 07:32 PFSH Medical History Depression Urinary incontinence Constipation Diverticulitis History of pneumonia Hypertension Hyperlipidemia Asthma Ataxia of both legs Uterine fibroid Postmenopausal bleeding History of endometrial biopsy Multiple sclerosis Cervical polyp Former smoker Surgical History History of arthroscopy of left knee History of colonoscopy (12/23/09) Social History household members: none Smoking Status: Former smoker alcohol intake: never Assessment & Plan Assessment & Plan narrative: 1. Acute fracture of the proximal left femur due to ground level fall. Operative repair 06/11. No complications. 2. Multiple sclerosis. Clinically stable with high fall risk. 3. Gait instability with repeated falls due to 2. 4. Depression. Continue routine medication. DVT prophylaxis: Postoperative Lovenox. Code status: Full code. This is reviewed with the patient on admission who clearly states this medical preference. PLAN: Continue DVT prophylaxis and ongoing rehabilitation efforts. She will need longterm facility rehabilitation transition. Baclofen as needed. Time-Based Coding :: 20 min spent with patient and on the chart (including review of chart, obtaining history, exam, reviewing outside data, placing orders, documenting exam and treatment plan, and counseling patient) on 06/13. Quality VTE Deep Vein Thrombosis/Pulmonary Embolism Present on Admission: No
[2024-06-13 07:44] LABS: Add Manual Diff / Slide Review NO; Basophils Absolute Auto 100 /uL (0-100); Basophils Percent Auto 0.7 % (0-2); Eosinophils Absolute Auto 200 /uL (0-450); Eosinophils Percent Auto 2.5 % (2-4); Hemoglobin 8.7 g/dL (12.0-16.0); Lymphocytes Absolute Auto 1300 /uL (1100-4500); Lymphocytes Percent Auto 13.2 % (25-40); Mean Corpuscular HGB Conc 33.5 % (30-36); Mean Corpuscular Hemoglobin 30.4 PG (26-34); Mean Corpuscular Volume 90.8 fL (80-100); Monocytes Absolute Auto 1000 /uL (0-900); Monocytes Percent Auto 10.6 % (3-14); Neutrophils Absolute Auto 7000 /uL (1500-7000); Platelet Count 174 X10^3/uL (150-400); Red Blood Cell Count 2.86 X10^6/uL (4.0-5.2); Red Cell Distribution Width 14.7 % (11.6-14.8); White Blood Cell Count 9.6 X10^3/uL (4.5-11.0)
[2024-06-13 08:06] LABS: BUN Creatinine Ratio 30.3 (6-22); Blood Urea Nitrogen 20 mg/dL (7-17); Calcium 7.9 mg/dL (8.4-10.2); Carbon Dioxide 22 mmol/L (22-32); Chloride 110 mmol/L (98-107); Estimated Glomerular Filt Rate > 60 mL/min (>60); Glucose 161 mg/dL (80-110); HEMOLYSIS < 15 (0-50); Potassium 3.8 mmol/L (3.4-5.1); Sodium 137 mmol/L (137-145)
--- NOTE | 2024-06-13 08:11 | P.PN_ITS ---
Subjective Subjective Date Patient Seen: 06/13/24 Time Patient Seen: 08:12 Interval history: Aide is sitting up in bed, eating breakfast. Friend Jewell in room. Pt reports she did not like working w/ PT yesterday d/t pain, but she knows this is necessary. Planning for SNF, likely tomorrow. Per CM notes, she had expressed that [facility] was one of her choices, but we discussed that [facility] or [facility] would be easier for her friends to come see her and for her to get transport to our office for follow up. She lives independently in [place] and uses a walker at baseline. She has a history of MS. Exam Vital Signs (past 8 hours): - 06/13/24 00:27 06/13/24 06:08 Temperature 98.8 F 98.9 F Pulse Rate 79 91 H Respiratory Rate 19 19 Blood Pressure 124/52 L 142/76 H Pulse Oximetry 94 96 Oxygen Flow Rate 0 0 Oxygen Delivery Method Room Air Oxygen Flow Rate 0 Narrative Exam Narrative: 3/5 hip flexors, 4/5 hamstirngs and quadriceps, 5/5 DF, PF, EHL on left. Sensation to light touch intact throughout LLE. Calf soft and compressible. Aquacel dressing w/ minimal blood drainage at distal portion. Objective Labs 06/13/24 07:32 06/12/24 05:48 Labs: Laboratory Results - last 24 hr 06/13/24 07:32 WBC 9.6 RBC 2.86 L Hgb 8.7 L Hct 26.0 L MCV 90.8 MCH 30.4 MCHC 33.5 RDW 14.7 Plt Count 174 Neut % (Auto) 73.0 Lymph % (Auto) 13.2 L [place] % (Auto) 10.6 Eos % (Auto) 2.5 Baso % (Auto) 0.7 Neut # (Auto) 7000 Lymph # (Auto) 1300 [place] # (Auto) 1000 H Eos # (Auto) 200 Baso # (Auto) 100 PFSH Medical History Depression Urinary incontinence Constipation Diverticulitis History of pneumonia Hypertension Hyperlipidemia Asthma Ataxia of both legs Uterine fibroid Postmenopausal bleeding History of endometrial biopsy Multiple sclerosis Cervical polyp Former smoker Surgical History History of arthroscopy of left knee History of colonoscopy (12/23/09) Social History household members: none Smoking Status: Former smoker alcohol intake: never Assessment & Plan Post-op Assessment and plan (1) Status post hip surgery: Assessment and Plan narrative: 1) Continue PT. WBAT to left leg. PT recommending SNF was recommended. 2) Currently receiving enoxaparin for VTE prophylaxis. If she becomes more mobile, she can be changed to ASA 81mg BID for 6 weeks rather than enoxaparin for 4 weeks. 3) Disposition, VTE prophylaxis, pain management per hospitalist service. She reports great relief w/ additional baclofen, which she takes at baseline for MS. 4) F/u in office w/ YOANDY or Dr Elizondo at [facility] in 10-14 days for wound check, in 6 weeks w/ Dr Elizondo for repeat imaging. Postoperative Procedures: Procedures Operation Date: 06/11/24 15:00 Actual Procedure Side Surgeon p Intramedullary Nailing Femur Left Alysha Elizondo MD Postoperative day: 2 Quality VTE Deep Vein Thrombosis/Pulmonary Embolism Present on Admission: No
[2024-06-13] MEDS: ENOXAPARIN 40 MG/0.4 ML SYRINGE SUBCUT (08:30)
[2024-06-13] MEDS: OXYBUTYNIN 5 MG TABLET PO ×2 (08:30→20:21)
[2024-06-13] MEDS: polyethylene glycoL 3350 17 GM POWD.PACK PO (08:30)
[2024-06-13] MEDS: DOCUSATE 100 MG CAPSULE PO ×2 (08:30→20:21)
[2024-06-13] MEDS: VENLAFAXINE ER 75 MG CAP 150 MG PO (08:30)
[2024-06-13] MEDS: OXYCODONE IR 5 MG TABLET PO ×2 (10:18→17:38)
--- NOTE | 2024-06-13 11:10 | PT.IPTN ---
Current Diagnoses Fracture of unspecified part of neck of left femur, initial encounter for closed fracture (06/11/24) Other specified postprocedural states (06/11/24) Surgery Performed Operation Date: 06/11/24 15:00 Actual Procedures p Intramedullary Nailing Femur(Left) - Alysha Elizondo MD Physical Therapy Treatment Note M2 PT-IP Current Condition Start: 06/12/24 10:41 Freq: NEEDED Status: Active Protocol: Document 06/12/24 10:15 MB (Rec: 06/12/24 10:59 MB [id number]) Physical Therapy Current Condition Current Condition Evaluation Date 06/12/24 Treatment Diagnosis Fall, left intertrochanteric fracture and nailing M3 PT-IP Subjective Start: 06/12/24 10:41 Freq: NEEDED Status: Active Protocol: Document 06/13/24 11:54 TS (Rec: 06/13/24 12:09 TS [id number]) Subjective Physical Therapy Visit Type Type Treatment Note Visit Start Time 11:10 Visit Stop Time 11:50 Number of HAND MOUNTER Visits 1 Physical Therapy Visit Comments Patient Comments Pt found resting in bed, reports spasms in LLE this morning, she is agreeable to PT. Therapy Pain Assessment Pain When Pain Assessed At Rest Pain Present Pain Present Pain Reported M4 PT-IP Mobility and Gait Start: 06/12/24 10:41 Freq: NEEDED Status: Active Protocol: Document 06/13/24 11:54 TS (Rec: 06/13/24 12:09 TS [id number]) PT-Bed Mobility Assessment Supine to Sit Supine to Sit Minimal Assistance,1 Person Assistance,Bedrails Sit to Supine Sit to Supine Maximum Assistance,1 Person Assistance Scooting Scooting to Edge of Bed Moderate Assistance PT-Transfer Assessment Sit to and From Stand Sit to and from Stand Maximum Assistance,1 Person Assistance,Use of Upper Extremities Equipment Transfer Assistive Device Gait Belt Orthotic/Prosthetic Devices or Brace: No Transfers Transfer Destination Bed,Chair Transfer Technique Stand Pivot Transfer Ability Level of Assist Maximum Assistance,2 Person Assistance Comments Mobility Comments Pt performed ankle pumps, quad sets, glute sets and heel slides prior to mobility. Supine to sit Steve for uprighting trunk and LLE assistance. She scooted to EOB with some difficulty and ModA . STS from bed MaxA x1 with use of FWW, pt has involuntary movements of limbs and requires cues to maintain hold of FWW. Stand pivot to commode MaxA x1, pt shuffles feet to commode. STS from commode MaxA x1 with cues for pushing from arms of the commode. Stand pivot back to bed MaxA x2 with FWW, pt fatigues and sits on bed before it is safe to do so. Pt was left back in bed, all needs met. Gait Assessment Comments Gait Comments Stand pivot x2 PT-Balance Assessment Sitting Balance and Reactions Static Sitting Balance Ability Fair Dynamic Sitting Balance Ability Poor Standing Balance and Reactions Static Standing Balance Ability Poor Dynamic Standing Balance Ability Poor Device Used FWW M5 PT-IP Objective Assessments Start: 06/12/24 10:41 Freq: NEEDED Status: Active Protocol: Document 06/12/24 10:15 MB (Rec: 06/12/24 10:59 MB [id number]) Orientation Orientation/Cognition Level of Alertness [place] Safety Awareness Decreased Safety Awareness Comments PT arrives after OT asks all orientation questions and OT reports pt is A&Ox4. Pt demonstrates very poor body awareness and command- following during mobility assessment Gross Range of Motion Upper Extremity ROM Impairments Defer to OT Lower Extremity ROM Assessment Left Impaired Strength Lower Extremity Strength Assessment Left Impaired Ankle 4/5 Comments Strength Comments PT does not MMT left hip and knee and RLE is grossly 4/5 with MMT in chair Coordination Assessment Gross Coordination Gross Coordination Impaired Assessment Coordination Comments Functional movements are dysmetric with decreased left hand awareness with STS, scooting and holding onto walker. Movements appears mildly like chorea-type movement Sensation Assessment Comments Sensation Comments Did not test M6 PT-IP Treatment Start: 06/12/24 10:41 Freq: NEEDED Status: Active Protocol: Document 06/13/24 11:54 TS (Rec: 06/13/24 12:09 [id number]) Physical Therapy Treatment Exercises Exercises Ankle Pumps,Gluteal Sets,Quad Sets,Heel Slides Education Education Provided Weight Bearing Status,Safety M7 PT-IP Assessment and Plan Start: 06/12/24 10:41 Freq: NEEDED Status: Active Protocol: Document 06/13/24 11:54 TS (Rec: 06/13/24 12:09 [id number]) PT Summary Assessment and Plan Potential Rehabilitation Potential Fair Summary Impairments Pain,ROM,Strength,Balance, Coordination,Cognition,Bed Mobility,Transfers,Gait, Activity Tolerance Progress Towards Goals Slow Progress due to Pain,Slow Progress - Other Assessment Summary Aide is making slow progress with her mobility. She requires Min-ModA for bed mobility. She continues to require MaxA for STS and transfers to commode and bed 1 -2PA. She is impulsive and does not follow directions well. She continues to have involuntary movements making mobility more difficult. PT continues to recommend SNF. Goals Bed Mobility Goal Independent Transfer Goal Independent,Front Wheeled Walker Gait Goal Independent,Front Wheel Walker Gait Distance 75 Days to Meet Goals 5 Frequency of Treatment Frequency Of Treatment Once a Day Other frequency May consider increasing to twice a day as appropriate Treatment Plan Physical Therapy Treatment Plan Bed Mobility Training,Transfer Training,Gait Training, Therapeutic Exercise,Balance Retraining,Post Op Education, Discharge Planning,Hot or Cold Pack,Neuromuscular Re-ed, Coordination Retraining,Manual Therapy Weight Bearing Status Weight Bearing Status Weight Bear as Tolerated Recommendations To Nursing Amount of Assist Needed 2 Person Assist Discharge Recommendations PT Discharge Recommendations SNF Rehab Transportation Needs at Discharge Wheelchair/Cabulance
[2024-06-13 12:00] VITALS: BP 108/54; PULSE 79; RESP 18; TEMP 36.6; O2SAT 95
--- NOTE | 2024-06-13 12:25 | CM.DPC ---
DCP Cont. Reviewed EMR and team rounds for status updates. Spoke with pt and relayed that she was accepted to [facility] for tomorrow. She has now changed her mind, would like to go to [facility] instead. Sent referral to for review. They can accept and will transport her tomorrow (Wed) at 1:00pm.
[2024-06-13] MEDS: FLEETS ENEMA 1 EACH PR (12:29)
[2024-06-13 16:00] VITALS: BP 119/60; PULSE 72; RESP 16; TEMP 37.1; O2SAT 97
--- NOTE | 2024-06-13 16:16 | OT.IPNOTE ---
Pt not wanting to get up for OT treatment as feeling too tired. Pt promised to work with OT tomorrow.
[2024-06-13 19:35] VITALS: BP 140/66; PULSE 86; RESP 18; TEMP 36.7; O2SAT 95
[2024-06-13] MEDS: SENNOSIDES 8.6 MG TABLET 17.2 MG PO (20:22)
[2024-06-13] MEDS: OXYCODONE IR 10 MG TABLET PO (22:41)
[2024-06-13 23:17] VITALS: BP 112/50; PULSE 76; RESP 18; TEMP 36.7; O2SAT 97
[2024-06-14 03:40] VITALS: BP 123/69; PULSE 68; RESP 18; TEMP 36.4; O2SAT 95
[2024-06-14] MEDS: IBUPROFEN 400 MG TABLET PO ×3 (05:30→13:34)
[2024-06-14] MEDS: BACLOFEN 10 MG TABLET 20 MG PO (05:30)
[2024-06-14 06:23] LABS: Hemoglobin 8.8 g/dL (12.0-16.0); Mean Corpuscular Hemoglobin 30.8 PG (26-34); Mean Corpuscular Volume 90.7 fL (80-100); Platelet Count 174 X10^3/uL (150-400); Red Blood Cell Count 2.87 X10^6/uL (4.0-5.2); Red Cell Distribution Width 14.7 % (11.6-14.8); White Blood Cell Count 6.5 X10^3/uL (4.5-11.0)
[2024-06-14 06:37] LABS: BUN Creatinine Ratio 30.5 (6-22); Blood Urea Nitrogen 18 mg/dL (7-17); Calcium 7.8 mg/dL (8.4-10.2); Carbon Dioxide 26 mmol/L (22-32); Chloride 108 mmol/L (98-107); Estimated Glomerular Filt Rate > 60 mL/min (>60); Glucose 98 mg/dL (80-110); HEMOLYSIS < 15 (0-50); Potassium 4.2 mmol/L (3.4-5.1); Sodium 136 mmol/L (137-145)
[2024-06-14 08:00] VITALS: BP 116/78; PULSE 73; RESP 16; TEMP 36.3; O2SAT 95
[2024-06-14] MEDS: OXYBUTYNIN 5 MG TABLET PO (08:03)
[2024-06-14] MEDS: ENOXAPARIN 40 MG/0.4 ML SYRINGE SUBCUT (08:03)
[2024-06-14] MEDS: VENLAFAXINE ER 75 MG CAP 150 MG PO (08:04)
[2024-06-14] MEDS: DOCUSATE 100 MG CAPSULE PO (08:04)
[2024-06-14] MEDS: OXYCODONE IR 5 MG TABLET PO ×2 (08:04→13:34)
--- NOTE | 2024-06-14 08:31 | PT.IPTN ---
Current Diagnoses Fracture of unspecified part of neck of left femur, initial encounter for closed fracture (06/11/24) Other specified postprocedural states (06/11/24) Surgery Performed Operation Date: 06/11/24 15:00 Actual Procedures p Intramedullary Nailing Femur(Left) - Alysha Elizondo MD Physical Therapy Treatment Note M2 PT-IP Current Condition Start: 06/12/24 10:41 Freq: NEEDED Status: Active Protocol: Document 06/12/24 10:15 MB (Rec: 06/12/24 10:59 MB [id number]) Physical Therapy Current Condition Current Condition Evaluation Date 06/12/24 Treatment Diagnosis Fall, left intertrochanteric fracture and nailing M3 PT-IP Subjective Start: 06/12/24 10:41 Freq: NEEDED Status: Active Protocol: Document 06/14/24 09:44 TS (Rec: 06/14/24 09:59 TS [id number]) Subjective Physical Therapy Visit Type Type Treatment Note Visit Start Time 08:31 Visit Stop Time 09:00 Number of AEROSOL SUPERVISOR Visits 2 Physical Therapy Visit Comments Patient Comments Pt found resting in bed, is agreeable to PT. Therapy Pain Assessment Pain When Pain Assessed At Rest Pain Present Pain Present Pain Reported M4 PT-IP Mobility and Gait Start: 06/12/24 10:41 Freq: NEEDED Status: Active Protocol: Document 06/14/24 09:44 TS (Rec: 06/14/24 09:59 TS [id number]) PT-Bed Mobility Assessment Supine to Sit Supine to Sit Minimal Assistance,1 Person Assistance,Bedrails Scooting Scooting to Edge of Bed Moderate Assistance PT-Transfer Assessment Sit to and From Stand Sit to and from Stand Minimal Assistance,2 Person Assistance,Use of Upper Extremities Equipment Transfer Assistive Device Gait Belt,Front Wheeled Walker Orthotic/Prosthetic Devices or Brace: No Transfers Transfer Destination Chair Transfer Technique Stand Step Pivot Transfer Ability Level of Assist Moderate Assistance,2 Person Assistance Comments Mobility Comments Supine to sit Steve for uprighting trunk with HOB elevated 60D. She scooted to EOB with difficulty and ModA for L hip. STS x2 with FWW Steve x2. She performed stand step pivot to chair ModA x2, pt shuffles feet. Pt was left in chair, all needs met. Gait Assessment Gait Gait Assistance Required: Moderate Assistance,2 Person Assist Distance (Feet) 1 Able to Maintain Weight Bearing Status Yes During Gait Assistive Devices Assistive Device Gait Belt,Front Wheeled Walker Orthotic/Prosthetic Devices or Brace: No Gait Deviations General Gait Pattern Antalgic,Ataxic,Decreased Stride Length,Decreased Feet Clearance,Flexed Trunk,Step-to Gait,Wide Based Gait Factors Limiting Gait Function Factors Limiting Gait Function Abnormal Tonal Influences, Decreased Activity Tolerance, Decreased Strength,Difficulty Following Directions, Incoordination,Limited Range of Motion,Pain,Poor Balance, Poor Safety Awareness Comments Gait Comments Stand pivot x2 PT-Balance Assessment Sitting Balance and Reactions Static Sitting Balance Ability Fair Dynamic Sitting Balance Ability Poor Standing Balance and Reactions Static Standing Balance Ability Fair Dynamic Standing Balance Ability Fair Device Used FWW M5 PT-IP Objective Assessments Start: 06/12/24 10:41 Freq: NEEDED Status: Active Protocol: Document 06/12/24 10:15 MB (Rec: 06/12/24 10:59 MB [id number]) Orientation Orientation/Cognition Level of Alertness [place]us[place] Safety Awareness Decreased Safety Awareness Comments PT arrives after OT asks all orientation questions and OT reports pt is A&Ox4. Pt demonstrates very poor body awareness and command- following during mobility assessment Gross Range of Motion Upper Extremity ROM Impairments Defer to OT Lower Extremity ROM Assessment Left Impaired Strength Lower Extremity Strength Assessment Left Impaired Ankle 4/5 Comments Strength Comments PT does not MMT left hip and knee and RLE is grossly 4/5 with MMT in chair Coordination Assessment Gross Coordination Gross Coordination Impaired Assessment Coordination Comments Functional movements are dysmetric with decreased left hand awareness with STS, scooting and holding onto walker. Movements appears mildly like chorea-type movement Sensation Assessment Comments Sensation Comments Did not test M6 PT-IP Treatment Start: 06/12/24 10:41 Freq: NEEDED Status: Active Protocol: Document 06/14/24 09:44 TS (Rec: 06/14/24 09:59 TS [id number]) Physical Therapy Treatment Education Education Provided Weight Bearing Status,Safety M7 PT-IP Assessment and Plan Start: 06/12/24 10:41 Freq: NEEDED Status: Active Protocol: Document 06/14/24 09:44 TS (Rec: 06/14/24 09:59 TS [id number]) PT Summary Assessment and Plan Potential Rehabilitation Potential Fair Summary Impairments Pain,ROM,Strength,Balance, Coordination,Cognition,Bed Mobility,Transfers,Gait, Activity Tolerance Progress Towards Goals Slow Progress due to Pain,Slow Progress - Other Assessment Summary Aide is making some progress with her mobility this session . She continues to require ModA-Steve for bed mobility. She required decreased assist for STS and pivot transfer to chair. She has involuntary movement which causes some safety issues with her mobility and she fatgiues quickly due to her MS. PT continues to recommend SNF. Goals Bed Mobility Goal Independent Transfer Goal Independent,Front Wheeled Walker Gait Goal Independent,Front Wheel Walker Gait Distance 75 Days to Meet Goals 5 Frequency of Treatment Frequency Of Treatment Once a Day Other frequency May consider increasing to twice a day as appropriate Treatment Plan Physical Therapy Treatment Plan Bed Mobility Training,Transfer Training,Gait Training, Therapeutic Exercise,Balance Retraining,Post Op Education, Discharge Planning,Hot or Cold Pack,Neuromuscular Re-ed, Coordination Retraining,Manual Therapy Weight Bearing Status Weight Bearing Status Weight Bear as Tolerated Recommendations To Nursing Amount of Assist Needed 2 Person Assist Discharge Recommendations PT Discharge Recommendations SNF Rehab Transportation Needs at Discharge Wheelchair/Cabulance
--- NOTE | 2024-06-14 10:36 | P.DS_ITS ---
History of Present Illness History of Present Illness Chief complaint: L hip fracture Narrative: From H&P: 69-year-old woman with multiple sclerosis, living independently in Wednesday, normal using a 4 wheel walker, got up this morning to go to the bathroom without using her walker and fell on her left side, without known loss of consciousness or other injuries. She was able to scoot herself to her phone and called 911. She reported left hip as well as low back pain. She was given 50 mcg of fentanyl IV and brought to the emergency department in Wednesday where she was found to have a proximal left femur fracture. She was transferred to this hospital for surgical management. On arrival she denies other complaints, specifically denying chest pain, shortness of breath, abdominal pain or other recent infectious symptoms. She has a history of MS stating to age 32 when she presented with visual disturbances, and states she has global fatigue and weakness without specific deficits. Discharge Providers Provider Date of admission: 06/11/24 10:51 Discharge Date: 06/14/24 Consults: 06/11/24 11:00 Consult to Hospitalist Service Routine Comment: Consulting Provider: Fam Whitmore V Reason for consultation: Fall with resulting hip fracture Has provider been notified: Yes 06/11/24 16:05 Consult to Discharge Planning Routine Comment: Consult to Occupational Therapy Evaluate & Treat Comment: Physician Instructions: Evaluate and treat Consult to Orthopedic Surgery Routine Comment: Consulting Provider: Alysha Elizondo Reason for consultation: left hip fx Has provider been notified: Yes Consult to Physical Therapy Evaluate & Treat Comment: wbat Physician Instructions: Evaluate and Treat Discharge provider: Parish Manrique MD Summary Hospital Course Discharge Diagnosis: 1. Acute pathological fracture of the proximal left femur due to ground level fall. Operative repair 06/11. No complications. 2. Multiple sclerosis. Clinically stable with high fall risk. 3. Gait instability with repeated falls due to 2. 4. Depression. Continue routine medication. Hospital Course: This is a pleasant 69-year-old female with MS who had a ground level fall and hip fracture. She underwent operative repair on June 11 without complications. She had a mild blood loss anemia in the postoperative phase secondary to her fracture. Her fracture relates to osteoporosis. She did well in the post surgery phase and had a mild anemia that did not require blood products. She was stable for discharge for rehabilitation efforts at [facility]. She will be on Lovenox for DVT prophylaxis. Status at Discharge Cognitive/behavioral status at discharge: oriented Functional status at discharge: uses cane/walker Overall status at discharge: patient is progressing back to baseline Time Spent with Patient Time spent: Greater than 30 minutes Exam Vital Signs (past 8 hours): - 06/14/24 03:40 Temperature 97.6 F Pulse Rate 68 Respiratory Rate 18 Blood Pressure 123/69 Pulse Oximetry 95 Oxygen Flow Rate 0 Oxygen Delivery Method Room Air Oxygen Flow Rate 0 Narrative Exam Narrative: NAD, alert and oriented. Fluent speech. Lungs are clear, normal rate and effort. Heart is regular, no murmur gallop or rub. Abdomen is soft, non distended. Extremities are free of edema. Objective Imaging Hip Xray:: Radiologist's impression: Sequential placement femoral nail and neck screw transfixing and intertrochanteric fracture. Labs 06/14/24 05:49 06/14/24 05:49 Labs: Laboratory Results - last 24 hr 06/14/24 05:49 WBC 6.5 RBC 2.87 L Hgb 8.8 L Hct 26.0 L MCV 90.7 MCH 30.8 MCHC 34.0 RDW 14.7 Plt Count 174 Sodium 136 L Potassium 4.2 Chloride 108 H Carbon Dioxide 26 BUN 18 H Creatinine 0.59 Estimated GFR > 60 BUN/Creatinine Ratio 30.5 H Glucose 98 Calcium 7.8 L PFSH Medical History Depression Urinary incontinence Constipation Diverticulitis History of pneumonia Hypertension Hyperlipidemia Asthma Ataxia of both legs Uterine fibroid Postmenopausal bleeding History of endometrial biopsy Multiple sclerosis Cervical polyp Former smoker Surgical History History of arthroscopy of left knee History of colonoscopy (12/23/09) Social History household members: none Smoking Status: Former smoker alcohol intake: never Discharge Assessment & Plan Assessment and Plan Assessment: 1. Acute pathological fracture of the proximal left femur due to ground level fall. Operative repair 06/11. No complications. 2. Multiple sclerosis. Clinically stable with high fall risk. 3. Gait instability with repeated falls due to 2. 4. Depression. Continue routine medication. Plan of Treatment: Discharge to [facility] nursing facility for rehabilitation efforts. Discharge Plan Discharge Plan Patient Disposition: SNF Transfer to: [facility] Other facility: Dr. Walker Provider Discharge Comment: Stable for discharge to [facility] for rehabilitation efforts. Hip fracture. Discharge orders & Medications Prescriptions: New enoxaparin [Lovenox] 40 mg/0.4 mL Syringe 40 mg SUBCUT DAILY Qty: 30 0RF oxycodone 10 mg Tablet 10 mg PO Q3H PRN (Reason: Pain, Severe (7-10)) Qty: 20 0RF Continued doxepin 100 MG capsule 100 mg PO BEDTIME Qty: 0 gabapentin [Neurontin] 300 MG capsule 300 mg PO TID PRN (Reason: Pain (Scale Score 4-6)) Qty: 0 modafinil 200 mg Tablet 200 mg PO DAILY PRN (Reason: mobility) oxybutynin chloride 5 mg Tablet 5 mg PO BID Patient Comments: Takes as needed, usually from 1-3 tabs/day venlafaxine 150 mg capsule,extended release 24hr 150 mg PO DAILY baclofen 10 mg tablet 20 mg PO BID PRN (Reason: Spasms) Medication counseling provided by Pharmacist: No Follow up/Referrals: Alysha Elizondo MD [Physician] - (F/u in office w/ PA or Dr Elizondo at [facility] in 10-14 days for wound check, in 6 weeks w/ Dr Elizondo for repeat imaging.) Discharge Health Status Multidrug resistant organism: No MDRO Diet/Activity/Treatments Diet: Regular Activity: Weightbearing as tolerated to left leg. Skin/Wound/Dressing Care Report to your healthcare provider any signs of infection, such as:: increased pain, unusual drainage and unusual redness Dressing: May shower. If dressing becomes saturated inside, remove and replace with clean, dry gauze. Special Rehabilitation Services Reason for rehabilitation: Post-operative therapy Rehab type: Physical therapy and Occupational therapy Visit Report/Discharge Packet Instructions: DI for Hip Fracture Stand Alone Forms: Patient Portal/API, Surgery Discharge Quality VTE Deep Vein Thrombosis/Pulmonary Embolism Present on Admission: No
--- NOTE | 2024-06-14 12:01 | P.PN_ITS ---
Subjective Subjective Interval history: Aide is a pleasant 69 year old female who is POD# 3 s/p left hip IMN by Dr. Elizondo. Today she report she is doing okay overall but is still having moderate-severe pain. She states she has had much difficulty mobilizing post-op d/t pain and feelings of weakness, she does have a history of MS. She did walk w/ a walker baseline prior to the fall. She lives alone and does not have much support in the area so she plans to d/c to SNF for rehab. No specific questions or concerns for me today. Denies fever, chills, chest pain, SOB, nausea. Operative Date/Time/Diagnoses Date of procedure: 06/11/24 Time of procedure: 15:22 Pre-op diagnosis: Left intertrochanteric hip fracture Post-op diagnosis: same Procedure & Clinicians Procedure: Fixation left intertrochanteric hip fracture with cephalomedullary nail CPT code 13884, left Same procedure as scheduled: Yes Indications: 69-year-old female with ground level fall and displaced intertrochanteric femur fracture. Indicated for surgical treatment. The risks and benefits of the procedure have been discussed with the patient and given the opportunity to ask questions. The risks of surgery include but are not limited to infection, malunion, nonunion, persistence of pain, damage to nerves and blood vessels, posttraumatic arthritis, DVT, PE, cardiopulmonary complications and . The patient expressed a thorough understanding of the risks and benefits of surgery and has elected to proceed. Consent was signed. Surgeon: Alysha Elizondo Click Yes if Unassisted: Yes Anesthesia Type: General and Local Exam Vital Signs (past 8 hours): - 06/14/24 08:00 Temperature 97.3 F L Pulse Rate 73 Respiratory Rate 16 Blood Pressure 116/78 Pulse Oximetry 95 Oxygen Delivery Method Room Air Oxygen Flow Rate 0 Narrative Exam Narrative: Patient lying comfortably in bed during our interview today. No acute distress. AOx3. Grossly normal alignment of bilateral lower extremities. 5/5 strength with DF, PF, EHL bilaterally. Gross sensation intact throughout bilateral lower extremities. Calves soft and non-tender bilaterally. SCDs are on and functioning. Brisk capillary refill. Post-surgical Aquacel dressin intact over the left lateral thigh with mild bloody drainage. Objective Labs 06/14/24 05:49 06/14/24 05:49 Labs: Laboratory Results - last 24 hr 06/14/24 05:49 WBC 6.5 RBC 2.87 L Hgb 8.8 L Hct 26.0 L MCV 90.7 MCH 30.8 MCHC 34.0 RDW 14.7 Plt Count 174 Sodium 136 L Potassium 4.2 Chloride 108 H Carbon Dioxide 26 BUN 18 H Creatinine 0.59 Estimated GFR > 60 BUN/Creatinine Ratio 30.5 H Glucose 98 Calcium 7.8 L PFSH Medical History Depression Urinary incontinence Constipation Diverticulitis History of pneumonia Hypertension Hyperlipidemia Asthma Ataxia of both legs Uterine fibroid Postmenopausal bleeding History of endometrial biopsy Multiple sclerosis Cervical polyp Former smoker Surgical History History of arthroscopy of left knee History of colonoscopy (12/23/09) Social History household members: none Smoking Status: Former smoker alcohol intake: never Assessment & Plan Post-op Postoperative Procedures: Procedures Operation Date: 06/11/24 15:00 Actual Procedure Side Surgeon p Intramedullary Nailing Femur Left Alysha Elizondo MD Postoperative plan narrative: 1) Plan to discharge to SNF today per Medicine. 2) Continue multimodal pain management with ice to the hip for additional pain control. 3) Anticoagulation per medicine, Lovenox for DVT prophylaxis. 4) Continue to work w/ PT to improve strength and mobility. Weightbearing as tolerated. 5) Keep dressing intact, clean, dry until 2 week postop appointment. No soaking the incision site in pools or tubs. No topical ointments or creams to the incision site. 6) Follow up at [facility] orthopedics in 2 weeks for a postop appointment and wound check. All patient's questions were answered, she demonstrates understanding and is in agreement with the plan. Call our office if any questions or concerns arise. Quality VTE Deep Vein Thrombosis/Pulmonary Embolism Present on Admission: No
--- NOTE | 2024-06-14 13:16 | CM.DPC ---
DCP Cont. Reviewed EMR and team rounds for status updates. Pt has been medically cleared for d/c. She will be picked up today by [facility] at 1:00pm. No further DCP needs indicated at this time.
[2024-06-14] MEDS: ACETAMINOPHEN 325 MG TABLET 650 MG PO (13:35)
--- NOTE | 2024-06-14 16:20 | PC.NURSE ---
Patient is A&OX4, VSS, afebrile on RA. She has an aquacel to L hip with scant drainage otherwise intact and dry. She is medicated per request for pain with scheduled tylenol and ibuprofen with good effect, and prn 5 mg oxycodone for severe pain. She reports pain well managed. She denies need for miralax this a.m. as she tries to have BM on bedside commode. Patient is x1 assist to BSC but unable to walk back to chair /bed after standing, and is transported via mechanical lift back to bed. She is cleared for discharge to SNF today, and verbalizes agreement with plan to go to [facility] this afternoon. She acknowledges site care, medications, as well as activity limitations and follow up appointment. Transporter from [facility] arrives at 1315, she is transported via w/ch and all of her belongings at 1340. Packet given to facility designee.
== END 2024-06-14 13:40 | DRG 482 ==
PROVIDERS: Internal Medicine; Orthopaedic Surgery Foot and Ankle Surgery; Admitting Provider Hospitalist; Referring Provider Hospitalist; Visit Provider Hospitalist
PROC: 0QS706Z Reposition Left Upper Femur with Intramedullary Internal Fixation Device, Open Approach (ICD-10-PCS; CPT 27245; principal; 2024-06-11 15:00)
DX: M80.052A Age-related osteoporosis with current pathological fracture, left femur, initial encounter for fracture (principal); G35 Multiple sclerosis; R26.89 Other abnormalities of gait and mobility; F32.A Depression, unspecified; Z91.81 History of falling; Z87.891 Personal history of nicotine dependence
CPT/HCPCS: 36415; 73502; 76000; 80048; 85025; 85027; 97110; 97162; 97167; 97530; 97535; J0171; J0330; J0690; J1170; J1650; J1885; J2405; J2704; J3010

== ENCOUNTER 2024-08-16 01:51 | Inpatient (IN) | payer MEDICARE, OTHER, SELFPAY ==
[2024-06-11 10:59] VITALS: BMI 30.4
[2024-08-16 02:21] VITALS: BMI 32.3
[2024-08-16 03:30] VITALS: BP 145/53; PULSE 59; RESP 20; TEMP 36.5; O2SAT 100
[2024-08-16] MEDS: LACTATED RINGERS 1,000 ML 84 ML IV (04:09)
[2024-08-16] MEDS: HYDROCODONE/ACET 5/325 TABLET 1 TAB PO (04:42)
--- NOTE | 2024-08-16 04:56 | PC.NURSE ---
NOC: Took over patient care from [facility]. Pt transferred from [facility] to bed via slide board. Immobility d/t bimalleolar R ankle fracture; Purewick placed. VSWNL, A&Ox4, LS clear bilaterally, regular HR. Pain 0/10, progressed to 5/10 by end of admission assessment, provided PO PRN Brooks 5/325. Pt resting comfortably, bed low/locked, call light within reach. Care continues.
[2024-08-16] MEDS: IBUPROFEN 600 MG TABLET PO ×3 (06:31→18:25)
[2024-08-16] MEDS: HYDROMORPHONE 0.5 MG INJ IV (06:33)
[2024-08-16 08:00] VITALS: BP 106/42; PULSE 69; RESP 15; TEMP 36.3; O2SAT 98
[2024-08-16] MEDS: INFLUENZA HD VACCINE 0.7 ML SYRINGE IM (08:47)
[2024-08-16] MEDS: VENLAFAXINE ER 75 MG CAP 150 MG PO (15:26)
--- NOTE | 2024-08-16 15:52 | CM.DANOTE ---
DCP Assessment Note: Patient is a 69 y/o F admitted s/p fall, ankle fx, from [facility] in Wednesday. Patient is confused at times and unable to tell me where she lives and gives permission for me to speak with her emergency contact. Spoke with Jewell Anatoly, a family friend, and she states the patient was at [facility] from May when she d/c'd from [place] s/p hip fx and was only at the [facility] in Wednesday a few days when she fell. Patient would likely need SNF at d/c but is possible she does not have SNF days remaining, will need to confirm with [facility]. Jewell states the Exec Director, Radha Soto, at [facility] was working on helping the patient set up medical POA with her cousin that lives in [place]. I left a VM with Radha, but did not speak with her re: these issues. RN states patient will have surgery Wednesday. DC Plan: SNF vs. return to [facility] with [facility] PT MARYAM Batista Discharge Planning/Care Management Advanced directive, confirm from FAMILY Start: 08/16/24 04:28 Freq: Q24H Status: Active Protocol: Document 08/16/24 04:28 MM (Rec: 08/16/24 04:29 MM [id number]) Advance Directive, confirm on record Time 04:29 Person contacted Patient Copy received No CM Discharge Assessment Start: 08/16/24 15:47 Freq: Status: Active Protocol: Document 08/16/24 15:47 KG (Rec: 08/16/24 15:51 KG [id number]) Discharge Planning Assessment Assigned Newsagent Berna Cartagena DPOA/Assigned Designee Name Aide Najera Advance Directives? Yes Advance Directives on File No History Provided By Patient,Friend Expected Length of Stay 4 Prior Living Arrangements Assisted Living Household Members none Type of transporation used prior to Relies on Others admit Facility Name Admitted From: Other Independent with ADL's No Is patient alert and oriented? Yes: Mild confusion with historical facts Caregiver for Another No Patient/Family Preference Senior Care Facility Barriers to Discharge Yes Comment Patient at [facility], need to verify number of days, possible patient doesn't have any SNF days remaining. Discharge Plan Senior Care Facility Transportation Arrangement facility transport Referrals Initiated Senior [facility]
[2024-08-16 19:57] VITALS: BP 149/48; PULSE 92; RESP 20; TEMP 37.2; O2SAT 96
[2024-08-16] MEDS: OXYBUTYNIN 5 MG TABLET PO (20:34)
[2024-08-16] MEDS: ASPIRIN EC 81 MG TABLET PO (20:34)
[2024-08-16] MEDS: BACLOFEN 10 MG TABLET 20 MG PO (20:40)
[2024-08-17] MEDS: HYDROCODONE/ACET 5/325 TABLET 1 TAB PO (00:18)
[2024-08-17] MEDS: IBUPROFEN 600 MG TABLET PO ×4 (00:18→17:10)
[2024-08-17 03:00] VITALS: BP 122/40; PULSE 84; RESP 16; TEMP 36.4; O2SAT 96
[2024-08-17 06:37] VITALS: BP 122/41; PULSE 79; RESP 16; TEMP 36.7; O2SAT 93
[2024-08-17] MEDS: VENLAFAXINE ER 75 MG CAP 150 MG PO (08:06)
[2024-08-17] MEDS: OXYBUTYNIN 5 MG TABLET PO ×2 (08:06→20:29)
[2024-08-17] MEDS: ASPIRIN EC 81 MG TABLET PO ×2 (08:06→20:28)
[2024-08-17 08:10] VITALS: BP 127/44; PULSE 77; RESP 15; TEMP 37; O2SAT 95
--- NOTE | 2024-08-17 14:20 | CM.DPC ---
DCP Cont. Reviewed EMR and team rounds for status updates. Pt has been accepted for [facility], they can take her either Fri or Sat, and will confirm with us on Wednesday am. Need to confirm transport time as well.
[2024-08-17] MEDS: DOCUSATE 100 MG CAPSULE PO (15:27)
[2024-08-17 16:00] VITALS: BP 128/51; PULSE 75; RESP 16; TEMP 36.9; O2SAT 95
--- NOTE | 2024-08-17 16:06 | PC.NURSE ---
Pt very concerned about having a bowel moment. She stated that it had been 4 or 5 days since last BM. Gave Pt 2 prune juice. Spoke with YOANDY Garcia and obtained a PRN order for stool softener. Gave Pt 1 dose of stool softener, and encouraged her to drink more fluids.
--- NOTE | 2024-08-17 17:29 | P.HP_ITS ---
History of Present Illness History of Present Illness Date Patient Seen: 08/17/24 Time Patient Seen: 17:30 Chief complaint: ankle fracture Narrative: This is a 69-year-old female who sustained a right bimalleolar ankle fracture which had a ground level fall while at a retirement facility. Of note she had a previous hip surgery that she was recovering from. Currently seen on the floor by myself. No distal numbness or tingling. Pain is well-controlled. No other complaints. PFSH Medical History Depression Urinary incontinence Constipation Diverticulitis History of pneumonia Hypertension Hyperlipidemia Asthma Ataxia of both legs Uterine fibroid Postmenopausal bleeding History of endometrial biopsy Multiple sclerosis Cervical polyp Former smoker Surgical History History of arthroscopy of left knee History of colonoscopy (12/23/09) Social History household members: none Smoking Status: Former smoker alcohol intake: never Meds Home Medications and Allergies Home Medications Medication Instructions Recorded Confirmed Type doxepin 100 mg capsule 100 mg PO BEDTIME ##0 11/10/12 08/16/24 History gabapentin 300 mg capsule 300 mg PO PRN PRN Pain (Scale 03/03/13 08/16/24 History (Neurontin) Score 4-6) ##0 modafinil 200 mg tablet 200 mg PO DAILY PRN mobility 03/20/19 08/16/24 History oxybutynin chloride 5 mg tablet 5 mg PO BID 03/20/19 08/16/24 History baclofen 10 mg tablet 20 mg PO PRN PRN Spasms 06/11/24 08/16/24 History venlafaxine 150 mg 150 mg PO DAILY 06/11/24 08/16/24 History capsule,extended release 24 hr Allergies Allergy/AdvReac Type Severity Reaction Status Date / Time glatiramer (copolymer 1) AdvReac Mild Redness @ Verified 06/11/24 11:09 [From Copaxone] injection site occasionally interferon beta-1b AdvReac Mild Depression Verified 06/11/24 11:09 [From Betaseron] Review of Systems Review of Systems ROS: Yes All systems reviewed with the patient and are negative except as otherwise documented Exam Vital Signs (past 8 hours): - 08/17/24 16:00 Temperature 98.4 F Pulse Rate 75 Respiratory Rate 16 Blood Pressure 128/51 L Pulse Oximetry 95 Oxygen Flow Rate 0 Oxygen Flow Rate 0 Narrative Exam Narrative: HEENT: Head atraumatic eyes anicteric moist mucous membranes Cardiovascular: Palpable peripheral pulses extremities are warm and well perfused Respiratory: Breathing comfortably on room air Psychiatric: Appropriate mood and affect Neuro: No acute deficits Musculoskeletal:Patient in a splint. Able to wiggle toes. Demonstrates sensation intact to light touch in sural, saphenous, superficial peroneal, deep peroneal and tibial nerve distributions. 2+ radial pulse with brisk capillary refill less than 2 seconds able to fire EHL and FHL Assessment & Plan Assessment & Plan narrative: Assessment: Right bimalleolar ankle fracture Plan: Plan for ORIF right ankle fracture tomorrow morning. She will be NPO at midnight. Nonweightbearing on the right lower extremity. Time-Based Coding :: [TOTAL MINUTES] spent with patient and on the chart (including review of chart, obtaining history, exam, reviewing outside data, placing orders, documenting exam and treatment plan, and counseling patient) on [DATE].
--- NOTE | 2024-08-17 17:39 | DI.RAD.S_ITS ---
PROCEDURE: XR ANKLE RT MIN 3V INDICATIONS: fracture TECHNIQUE: Three views of the ankle were acquired. COMPARISON: None. FINDINGS: Bones: Splint material obscures fine bone detail. There is suggestion of a least a mildly displaced bimalleolar fracture with slight medial widening of the ankle mortise. No juliano tibiotalar dislocation. Soft tissues: The Achilles tendon is not well seen. No suspicious soft tissue gas or radiodense foreign body. IMPRESSION: At least bimalleolar mildly displaced ankle fracture with slight mortise widening. Dictated by: Joyce Mckeon M.D. on 08/17/2024 at 18:38 Approved by: Joyce Mckeon M.D. on 08/17/2024 at 18:39
[2024-08-17 20:00] VITALS: BP 133/59; PULSE 85; RESP 18; TEMP 36.9; O2SAT 94
[2024-08-18] VITALS (10 sets, daily range): BP systolic 130–155; BP diastolic 45–74; PULSE 74–105; RESP 13–19; TEMP 36.6–37.6; O2SAT 93–98; BMI 32.3
--- NOTE | 2024-08-18 11:12 | PC.NURSE ---
Addendum entered by Leatha Jackson R.N. 08/18/24 15:46: Returned from ACU at 1400 Denies discomfort. New soft splint/cast CDI Able to feel ahd move toves. CMS + IVF infusing as per orders w/o incidence Call light w/in reach, bed alarm on for pt safety. Continue w/plan of care. Original Note: Pt denies discomfort at this time. Soft cast to RLE CDI OR staff here to escort to OR suite . Continue w/plan of care,
--- NOTE | 2024-08-18 11:39 | PM.PREOP ---
Pre-operative Note Interval Note History & Physical reviewed/Exam performed by Physician: Yes Changes to H&P: No
[2024-08-18] MEDS: CEFAZOLIN 2 GM/100 ML PREMIX 100 ML IV (12:00)
--- NOTE | 2024-08-18 12:21 | SUR.OPER ---
Supine on padded OR bed, head on pillow, arms secured on padded arm boards at <90 degrees abduction, legs uncrossed, safety belt at thigh, tape over blanket over non-operative leg. Bump under operative thigh.
[2024-08-18] MEDS: BUPIVACAINE 0.25% (PF) 30 ML, EPINEPHrine 0.15 MG INJ (12:28)
[2024-08-18] MEDS: LACTATED RINGERS 1,000 ML 42 ML IV (12:42)
--- NOTE | 2024-08-18 13:28 | DI.RAD.S_ITS ---
PROCEDURE: XR ANKLE RT MIN 3V INDICATIONS: RT ANKLE FX REPAIR (ORIF) TECHNIQUE: 3 views of the ankle were acquired. COMPARISON: [facility], CR, XR ANKLE RT MIN 3V, 08/17/2024, 17:55. FINDINGS: Bones: Anatomic alignment has been established by lateral plate and screws and vertically oriented cannulated screws at the lateral malleolus and medial malleolus fracture planes, respectively. Ankle mortise is normally aligned. No suspicious bony lesions. Soft tissues: No tibiotalar joint effusion. Achilles tendon appears normal. IMPRESSION: Normal anatomic alignment established for healing after ORIF of previously unstable medial and lateral right ankle fractures. Dictated by: Archie Boo M.D. on 08/18/2024 at 13:53 Approved by: Archie Boo M.D. on 08/18/2024 at 13:55
--- NOTE | 2024-08-18 14:05 | PM.OP.1 ---
Operative Date/Time/Diagnoses Date of procedure: 08/18/24 Time of procedure: 14:05 Pre-op diagnosis: right trimalleolar ankle fracture Post-op diagnosis: same Procedure & Clinicians Procedure: ORIF right bimalleolar ankle fracture Same procedure as scheduled: Yes Indications: Indications: This is a 69-year-old female who sustained a fall resulting in a bimalleolar ankle fracture. In order to restore stability and allow early mobilization and weight-bearing as well as ensure decreased risk of nonunion and malunion we discussed operative fixation. The risks and benefits of surgery including the risk of infection, damage to internal structures, bleeding, failure of hardware, need for revision surgery and ankle arthritis as well as the risk of anesthesia were discussed with the patient. The patient agreed with these risks and wished to go forward with surgery. Surgeon: Ralph Cruz Construction Skills Teacher: Adrianne Garcia Anesthesia Type: General Operative Notes Findings: Bimalleolar ankle fracture is seen under direct visualization and fluoroscopy Closure Type: primary Specimen(s): none sent Prosthetic devices, grafts, tissues, transplants, or devices: Soto and Nephew distal fibular locking plate x1 50 mm partially-threaded 4.0 cannulated screws x2 Estimated Blood Loss (mL): 20 Blood products transfused: none Tourniquet time (min): 40 Procedure in detail: Procedure: The patient was met in the preoperative holding area and we again discussed the risks and benefits of surgery. My initials were marked on the correct right lower extremity. The patient was brought back to the operating room and transferred to the operating table. Smooth induction of anesthesia was performed. A time-out was then performed confirming the correct operative extremity with my initials. A tourniquet was applied to the upper thigh. Standard sterile prep was done with chlorhexidine. Appropriate dry time was observed. An Esmarch was used and the tourniquet was inflated to 250 mmHg. A standard lateral approach to the fibula was made using a 10 blade. We looked for the sural nerve at the proximal portion of the incision and this was protected throughout the case. Dissection was carried down to the bone and the fracture was encountered. It was noted to be a oblique fracture at the level of the plafond. The fracture was irrigated and cleaned using a curette. [A small Soto and Nephew fracture specific distal fibula locking plate was then fashioned and placed onto the fibula and confirmed to be in the correct position using fluoroscopy. A shaft screw was used followed by distal locking screws.] Final fluoroscopy confirmed screw length and plate position as well as fracture reduction. We then turned our attention to the medial malleolus. A percutaneous approach was made to the medial malleolus after manual reduction was performed. K-wires were used to maintain the reduction. Two separate K-wires were used and confirmed on fluoroscopy to be in the correct position and trajectory. These were over-drilled and 2 separate 4-0 cannulated partially threaded 50 mm in length screws were placed. Stress radiographs were then performed which demonstrated no widening of the mortise. Final fluoroscopy demonstrated appropriate screw lengths and hardware position as well as fracture reduction throughout. Wounds were closed with 2-0 Vicryl and 2-0 nylon and dressed with Xeroform, 4x4s cast padding and then placed into a well-padded splint the patient awoke from anesthesia and was transported to the postoperative recovery unit without any issues Assisting participation: This operation could not have been safely performed (without compromising the technical results or length of the procedure) without the assistance of a skilled surgical garment assembly supervisor. The surgical garment assembly supervisor was medically necessary for proper positioning, retraction and manipulation of instruments, proper exposure, graft prep, and manipulation of tissue. Complications: none Post-operative Condition: stable Disposition: PACU Plan for aftercare: Postoperatively: 6 weeks of nonweightbearing followed by increased weight-bearing over the next few weeks. For this patient specifically, they will be nonweightbearing for 4 weeks. Transitioned to a boot at the 2 week cristiano in clinic when sutures are removed.
--- NOTE | 2024-08-18 14:33 | CM.DPC ---
DCP Continued: Reviewed EMR and team rounds for pt?s medical status. Pt is scheduled for ORIF surgery today, pending status post surgery before discharge plans can be arranged. Per team rounds, pt has 42 days of Medicare SNF days remaining - [facility] accepted and awaiting medical clearance; most likely will have bed ready after weekend. Plan: Anticipating discharge to SNF when medically cleared and bed available at [facility] (possibly Wednesday, 08/21). CM Team will continue to follow for coordination of discharge plans. RONY Terrell
[2024-08-18] MEDS: IBUPROFEN 600 MG TABLET PO ×2 (19:45→23:20)
[2024-08-18] MEDS: OXYBUTYNIN 5 MG TABLET PO (20:47)
[2024-08-18] MEDS: HYDROCODONE/ACET 5/325 TABLET 1 TAB PO (22:01)
[2024-08-18] MEDS: GABAPENTIN 300 MG CAPSULE PO (23:19)
[2024-08-19] MEDS: BACLOFEN 10 MG TABLET 20 MG PO (00:59)
--- NOTE | 2024-08-19 06:19 | PM.PNPO.1 ---
Subjective Subjective Date Patient Seen: 08/19/24 Time Patient Seen: 06:19 Interval history: Aide is a 69 yo female who was at an [facility] recovering from LEFT hip surgery (CM nail by Dr Elizondo) for an intertrochanteric fracture when she fell, sustaining a RIGHT bimalleolar ankle fracture. [facility] to by Dr Cruz and taken to surgery yesterday for fixation of her ankle. Prior to this recent fall, she had been doing well in terms of her left hip. She was ambulating with a walker and had no pain. Exam Vital Signs (past 8 hours): Oxygen Delivery Method Room Air Oxygen Flow Rate 0 Narrative Exam Narrative: Pt able to wiggle toes. Sensation to touch intact above and below splint. 5/5 hip strength, quadriceps, hamstrings on right. PFSH Medical History Depression Urinary incontinence Constipation Diverticulitis History of pneumonia Hypertension Hyperlipidemia Asthma Ataxia of both legs Uterine fibroid Postmenopausal bleeding History of endometrial biopsy Multiple sclerosis Cervical polyp Former smoker Surgical History History of arthroscopy of left knee History of colonoscopy (12/23/09) Social History household members: none Smoking Status: Former smoker alcohol intake: never Assessment & Plan Post-op Assessment and plan (1) Ankle fracture, bimalleolar, closed: Assessment and Plan narrative: 1) PT - Nonweightbearing to RLE for 4-6 weeks. She would like to try using a scooter. 2) F/u in office in 2-3 weeks for wound check. At this point, splint can be removed and she can be placed into a walking boot for fracture protection. Nonweightbearing should be maintained until follow up w/ Dr Cruz at 4-6 weeks postop. 3) ASA 81mg BID x 6 weeks for VTE prophylaxis. 4) Disposition/discharge per case management. From an orthopedic standpoint, this is an outpatient procedure and she can go to [facility] any time. I will write discharge summary, med list, rxs. (2) Status post hip surgery: Assessment and Plan narrative: WBAT to left leg. Postoperative Procedures: Procedures Operation Date: 08/18/24 12:15 Actual Procedure Side Surgeon p ORIF Ankle Fracture Right Ralph Cruz MD Postoperative day: 1
[2024-08-19 06:44] VITALS: BP 133/86; PULSE 86; RESP 17; TEMP 37; O2SAT 96
[2024-08-19 08:00] VITALS: BP 125/45; PULSE 83; RESP 18; TEMP 36.6; O2SAT 95
--- NOTE | 2024-08-19 08:09 | PM.DS.1 ---
History of Present Illness History of Present Illness Date Patient Seen: 08/19/24 Time Patient Seen: 08:09 Chief complaint: ankle fracture Narrative: Operative Date/Time/Diagnoses Date of procedure: 08/18/24 Time of procedure: 14:05 Pre-op diagnosis: right trimalleolar ankle fracture Post-op diagnosis: same Procedure & Clinicians Procedure: ORIF right bimalleolar ankle fracture Same procedure as scheduled: Yes Indications: Indications: This is a 69-year-old female who sustained a fall resulting in a bimalleolar ankle fracture. In order to restore stability and allow early mobilization and weight-bearing as well as ensure decreased risk of nonunion and malunion we discussed operative fixation. The risks and benefits of surgery including the risk of infection, damage to internal structures, bleeding, failure of hardware, need for revision surgery and ankle arthritis as well as the risk of anesthesia were discussed with the patient. The patient agreed with these risks and wished to go forward with surgery. Surgeon: Ralph Cruz Coil Winding Supervisor: Adrianne Garcia Anesthesia Type: General Operative Notes Findings: Bimalleolar ankle fracture is seen under direct visualization and fluoroscopy Closure Type: primary Specimen(s): none sent Prosthetic devices, grafts, tissues, transplants, or devices: Soto and Nephew distal fibular locking plate x1 50 mm partially-threaded 4.0 cannulated screws x2 Estimated Blood Loss (mL): 20 Blood products transfused: none Tourniquet time (min): 40 Discharge Providers Provider Date of admission: 08/16/24 01:51 Discharge Date: 08/19/24 Discharge provider: Amairani Novoa PA-C Summary Hospital Course Discharge Diagnosis: RIGHT trimalleolar ankle fracture, s/p open reduction and internal fixation of RIGHT bimalleolar fracture Hospital Course: Ms Najera's hospital course was unremarkable. On the morning of POD# 1, she was feeling well and ready for discharge to SNF prior to return to [facility]. She was eating and voiding without difficulty and her pain was well-controlled with oral medications. Exam Vital Signs (past 8 hours): - 08/19/24 06:44 Temperature 98.6 F Pulse Rate 86 Respiratory Rate 17 Blood Pressure 133/86 Pulse Oximetry 96 Oxygen Flow Rate 0 Oxygen Delivery Method Room Air Oxygen Flow Rate 0 Narrative Exam Narrative: Pt able to wiggle toes. Sensation to touch intact above and below splint. 5/5 hip strength, quadriceps, hamstrings on right. Left hip incisions are well-healed; there is a dime-sized area of scab at the distal portion of the distal incision that has no sign of infection. PFSH Medical History Depression Urinary incontinence Constipation Diverticulitis History of pneumonia Hypertension Hyperlipidemia Asthma Ataxia of both legs Uterine fibroid Postmenopausal bleeding History of endometrial biopsy Multiple sclerosis Cervical polyp Former smoker Surgical History History of arthroscopy of left knee History of colonoscopy (12/23/09) Social History household members: none Smoking Status: Former smoker alcohol intake: never Discharge Assessment & Plan Assessment and Plan Assessment: Right trimalleolar ankle fracture, s/p open reduction and internal fixation of right bimalleolar fracture Plan of Treatment: 1) PT - Nonweightbearing to RLE for 4-6 weeks. She would like to try using a scooter. 2) F/u in office in 2-3 weeks for wound check. At this point, splint can be removed and she can be placed into a walking boot for fracture protection. Nonweightbearing should be maintained until follow up w/ Dr Cruz at 4-6 weeks postop. 3) ASA 81mg BID x 6 weeks for VTE prophylaxis. Discharge Plan Discharge Plan Patient Disposition: SNF Transfer to: [facility] Discharge orders & Medications Prescriptions: New acetaminophen 325 mg Tablet 650 mg PO Q6H PRN (Reason: Fever/Mild Pain (1-3)) Qty: 120 0RF baclofen 10 mg Tablet 20 mg PO Q6H PRN (Reason: spasms) Qty: 20 0RF ondansetron 4 mg Tablet,Disintegrating 4 mg sublingual Q8HR PRN (Reason: Nausea) Qty: 20 0RF oxycodone 5 mg Tablet 5 mg PO Q4-6H PRN (Reason: Pain, Moderate (4-6)) Qty: 20 0RF doxepin 100 mg capsule 100 mg PO BEDTIME Qty: 10 0RF modafinil 200 mg tablet 200 mg PO DAILY PRN (Reason: mobility) Qty: 30 0RF Continued doxepin 100 MG capsule 100 mg PO BEDTIME Qty: 0 gabapentin [Neurontin] 300 MG capsule 300 mg PRN PRN (Reason: Pain (Scale Score 4-6)) Qty: 0 baclofen 20 mg tablet 20 mg PO 3XD modafinil 200 mg Tablet 200 mg PO DAILY PRN (Reason: mobility) oxybutynin chloride 5 mg Tablet 5 mg PO BID Patient Comments: Takes as needed, usually from 1-3 tabs/day venlafaxine 150 mg capsule,extended release 24hr 150 mg PO DAILY Follow up/Referrals: Ralph Cruz MD [Physician] - (2-3 weeks for wound check, possible suture removal w/ PA or Dr Cruz; can transfer to [facility] at that time but remain [facility]. 4-6 weeks w/ Dr Cruz.) Diet/Activity/Treatments Diet: Diet as Tolerated Activity: Nonweightbearing to right foot. Ok to use scooter. Skin/Wound/Dressing Care Report to your healthcare provider any signs of infection, such as:: chills, fever, night sweats, unusual drainage and unusual redness Dressing: Keep dressing/splint clean and dry until follow up in office. [facility] Reason for rehabilitation: Post-operative therapy Rehab type: Physical therapy and Occupational therapy Visit Report/Discharge Packet Instructions: DI for Open Reduction Internal Fixation Surgery, DI for Prescription Opioid Use Stand Alone Forms: Patient Portal/API, Surgery Discharge
[2024-08-19] MEDS: OXYBUTYNIN 5 MG TABLET PO (08:18)
[2024-08-19] MEDS: VENLAFAXINE ER 75 MG CAP 150 MG PO (08:18)
[2024-08-19] MEDS: SODIUM CHLORIDE 0.9% FLUSH 10 ML IV (08:22)
--- NOTE | 2024-08-19 10:09 | PC.NURSE ---
Addendum entered by Leatha Jackson R.N. 08/19/24 15:09: Transportation here to P/U pt at 1350 Pt escorted via W/C by [employer] combine driver to waiting vehicle. D/C in stable post op status. Original Note: Pt A/o, denies disconfort at this time. Soft cast on RLE CDI, CMS + toes warm & dry. SL intact/patent. Pt is going to [employer] this afternoon. Call light w/in reach, bed alarm on for pt safety. Continue w/plan of care.
[2024-08-19] MEDS: OXYCODONE IR 5 MG TABLET PO (10:22)
--- NOTE | 2024-08-19 11:01 | CM.DPC ---
DCP Discharge SNF Per Ortho PA, pt medically stable to discharge to SNF today and completed discharge orders and packet. DEREK called [facility] admissions and confirmed they could accept today around 1330. DEREK faxed PAS[facility], signed med list, scripts, orders to [facility] to review and met bedside with pt who has short term memory loss and provided pt with a note pad and pen to take notes and updated her on the d/c plan and pt agreeable. DEREK called pt's friend Jewell who lives locally and updated her on the discharge plan and confirmed pt's NOK brother Adolph Najera's phone number and left msg for brother regarding d/c plan for today. Friend Jewell will try to help work with pt's [facility] [place] towards getting some of pt's personal belongings to [facility] after discharge. Updated sheet metal worker helper, PROJECT COACH, and RN and provided number to call report. Plan: Patient to d/c to [facility] for rehab today via facility van at 1330 before safe return home to [facility] on Wednesday. MARYAM Dillard
--- NOTE | 2024-08-19 11:05 | PT.IIE ---
Current Diagnoses Displaced bimalleolar fracture of unspecified lower leg, initial encounter for closed fracture (08/16/24) Other specified postprocedural states (08/16/24) Surgery Performed Operation Date: 08/18/24 12:15 Actual Procedures p ORIF Ankle Fracture(Right) - Ralph Cruz MD Surgical History (Last Reviewed 06/12/24 @ 18:29 by Parish Manrique MD) History of arthroscopy of left knee History of colonoscopy (12/23/09) Medical History (Last Reviewed 06/12/24 @ 18:29 by Parish Manrique MD) Asthma Ataxia of both legs Cervical polyp Constipation Depression Diverticulitis Former smoker History of endometrial biopsy History of pneumonia Hyperlipidemia Hypertension Multiple sclerosis Postmenopausal bleeding Urinary incontinence Uterine fibroid Physical Therapy Inpatient Evaluation/Re-Eval M1 PT/OT-IP Prior Functional Status Start: 08/19/24 11:46 Freq: NEEDED Status: Active Protocol: Document 08/19/24 11:05 AB (Rec: 08/19/24 12:03 AB [id number]) Medical Review Prior Functional Status Medical History Reviewed Yes Communication able to make needs known; with slight confusion and memory issues Mobility and Gait pt stated that she was modified independent with all mobilities and ambulation using a FWW Social History Household Members none Living Arrangements House Number of Floors (Floors) One Floor Number of Stairs To Enter/Railing? ramp to enter Home Environment Standard Height Toilet,Walk in Shower,Ramp Home Equipment Front Wheel Walker,Shower Seat without Backrest,Hand Held Shower,Grab Bars In Shower M2 PT-IP Current Condition Start: 08/19/24 11:46 Freq: NEEDED Status: Active Protocol: Document 08/19/24 11:05 AB (Rec: 08/19/24 12:03 AB [id number]) Physical Therapy Current Condition Current Condition Evaluation Date 08/19/24 Treatment Diagnosis s/p R ankle ORIF; difficulty in walking Onset Date 08/16/24 M3 PT-IP Subjective Start: 08/19/24 11:46 Freq: NEEDED Status: Active Protocol: Document 08/19/24 11:05 AB (Rec: 08/19/24 12:03 AB [id number]) Subjective Physical Therapy Visit Type Type Initial Evaluation Visit Start Time 11:05 Visit Stop Time 11:45 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 of 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 Visits 0 Physical Therapy Visit Comments Patient Comments agreeable to do PT Therapy Pain Assessment Pain When Pain Assessed At Rest Pain Present Pain Present Pain Reported Location Right Ankle Intensity 1 Pain Management Techniques Modification of Treatment,Re- positioning,Timing of Activity with Medications M4 PT-IP Mobility and Gait Start: 08/19/24 11:46 Freq: NEEDED Status: Active Protocol: Document 08/19/24 11:05 AB (Rec: 08/19/24 12:03 AB [id number]) PT-Bed Mobility Assessment Supine to Sit Supine to Sit Maximum Assistance,1 Person Assistance,2 Person Assistance ,Head of Bed Elevated,Bedrails Sit to Supine Sit to Supine Maximum Assistance,1 Person Assistance,2 Person Assistance Scooting Scooting to Edge of Bed Maximum Assistance PT-Transfer Assessment Sit to and From Stand Sit to and from Stand Maximum Assistance,Total Assistance,2 Person Assistance ,Use of Upper Extremities Equipment Transfer Assistive Device Gait Belt,Front Wheeled Walker Orthotic/Prosthetic Devices or Brace: No Comments Mobility Comments pt supine in bed and agreeable to do PT. obtained PLOF and home set up. informed pt regarding NWB on RLE. pt with slight confusion and memory issues and needs constant cues for safety. pt tends to be impulsive. pt completed supine to sit max A x 1-2 and max cues. required increase time to complete. pt able to sit on EOB with initial mod A and cued to keep body forward. positioned pt on EOB and able to sit SBA to CGA. attempted sit<>stand x 2 and pt unable to stand up despite max A x 2 to total A x 2 provided. pt also unable to maintain NWB on RLE. pt needed to be cleaned up and assisted back to bed. max A x 2 for scooting towards HOB. max A x 1-2 for sit to supine. total A for positioning in bed. Left pt with NAC for brief change. 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 Gross Range of Motion Lower Extremity ROM Assessment Right Impaired Impairments R ankle on cast Strength Lower Extremity Strength Assessment Bilaterally Impaired Hip R: 3+/5 L: 3-/5 Knee 3+/5 Ankle R: NT L: 3+/5 Coordination Assessment Gross Coordination Gross Coordination WNL Sensation Assessment Sensation Sensation Description Numbness,Tingling Comments Sensation Comments varies per pt due to MS Muscle Tone Comments Muscle Tone Comments presents with slight UE tremors M6 PT-IP Treatment Start: 08/19/24 11:46 Freq: NEEDED Status: Active Protocol: Document 08/19/24 11:05 AB (Rec: 08/19/24 12:03 AB [id number]) Physical Therapy Treatment Education Education Provided Safety M7 PT-IP Assessment and Plan Start: 08/19/24 11:46 Freq: NEEDED Status: Active Protocol: Document 08/19/24 11:05 AB (Rec: 08/19/24 12:03 AB [id number]) PT Summary Assessment and Plan Potential Rehabilitation Potential Fair Status of Condition at Evaluation Evolving Summary Impairments Pain,ROM,Strength,Balance, Coordination,Sensation,Tone, Cognition,Bed Mobility, Transfers,Gait,Activity Tolerance Assessment Summary pt is a 69 y/o F s/p fall and sustained a R ankle fx. pt underwent R ankle ORIF POD 1 and is NWB on RLE. pt also with h/o of L hip ORIF also due to a fracture after a fall and has decrease LLE strength. pt also has MS presenting with slight tremors and has numbness/tingling throughout her body per pt and varies contributing to current condition. pt requiring max A x 1-2 with bed mobility with HOB elevated to assist and pt used bed rail. pt unable to stand despite max A x 2 to total A x 2 provided and unable to maintain NWB on RLE. pt will benefit from SNF rehab to improve overall strength and mobility. Goals Bed Mobility Goal Moderate Assistance Transfer Goal Moderate Assistance,Front Wheeled Walker Gait Goal Moderate Assistance,Front Wheel Walker Gait Distance 20 Other Goals improve bed mobility, transfers, ambulation using FWW 50 ft SBA Days to Meet Goals 10 Frequency of Treatment Frequency Of Treatment Once a Day Treatment Plan Physical Therapy Treatment Plan Bed Mobility Training,Transfer Training,Gait Training, Therapeutic Exercise,Balance Retraining,Post Op Education, Discharge Planning,Hot or Cold Pack,Neuromuscular Re-ed, Coordination Retraining,Manual Therapy Precautions Brace R ankle on cast Weight Bearing Status Weight Bearing Status Non-Weight Bearing Allowed Weight Bearing Amount (enter % RLE NWB or #) (%) Recommendations To Nursing Amount of Assist Needed Mechanical Lift Discharge Recommendations PT Discharge Recommendations SNF Rehab Transportation Needs at Discharge Wheelchair/Cabulance,Stretcher /Ambulance
[2024-08-19] MEDS: IBUPROFEN 600 MG TABLET PO (12:53)
== END 2024-08-19 13:50 | DRG 494 ==
PROVIDERS: Admitting Provider Orthopaedic Surgery; Referring Provider Orthopaedic Surgery; Visit Provider Orthopaedic Surgery
PROC: 0SSF04Z Reposition Right Ankle Joint with Internal Fixation Device, Open Approach (ICD-10-PCS; principal; 2024-08-18 12:15)
DX: S82.841A Displaced bimalleolar fracture of right lower leg, initial encounter for closed fracture (principal); F32.A Depression, unspecified; W18.30XA Fall on same level, unspecified, initial encounter
CPT/HCPCS: 73610; 76000; 90471; 90662; 97162; 97530; J0171; J0330; J0690; J1100; J1171; J2405; J2704; J3010

== ENCOUNTER → 2024-09-25 13:43 | Outpatient (CLI) | payer MEDICARE, OTHER, SELFPAY ==
--- NOTE | 2024-09-25 13:46 | DI.RAD.S_ITS ---
PROCEDURE: XR CHEST 2V INDICATIONS: Shortness of breath TECHNIQUE: 2 views of the chest were acquired. COMPARISON: None. FINDINGS: Heart, mediastinum and pulmonary vascular: Heart is normal in size and configuration. Mediastinum is unremarkable. Pulmonary vascular is normal. Lungs: Possible small infiltrate developing the posterior right lower lobe Pleural spaces: Normal-no effusions or pneumothorax. Bones and soft tissues: Normal IMPRESSION: Possible developing pneumonia posterior right lower lobe Dictated by: Henry Small M.D. on 09/26/2024 at 11:50 Approved by: Henry Small M.D. on 09/26/2024 at 11:51
== END ==
PROVIDERS: Referring Provider Registered Nurse; Visit Provider Registered Nurse
DX: R06.02 Shortness of breath (principal); R05.9 Cough, unspecified; N39.0 Urinary tract infection, site not specified
CPT/HCPCS: 71046; 81001; 87077; 87086; 87186

== ENCOUNTER → 2024-09-25 15:07 | Outpatient (ROUT) | payer MEDICARE, OTHER, SELFPAY ==
[2024-09-25 15:21] LABS: Appearance Urine UA CLOUDY; Bilirubin Urine UA NEGATIVE (NEGATIVE); Color Urine UA YELLOW; Glucose Urine UA NEGATIVE (Negative); Ketones Urine UA NEGATIVE (NEGATIVE); Leukocyte Esterase Urine UA 3+ (NEGATIVE); Nitrite Urine UA POSITIVE (Negative); Occult Blood Urine UA NEGATIVE (Negative); Protein Urine UA TRACE (Negative); Specific Gravity Urine UA 1.015 (1.000-1.035)
[2024-09-25 15:22] LABS: pH Urine UA 7.5 (4.5-8.0)
[2024-09-25 15:28] LABS: Bacteria Urine Many (>30); Culture Indicated Urine Specimen Cultured; Mucus Urine 1+ (Negative); RBC Urine 0-1/HPF (0-5/HPF); Squamous Epithelial Cell Urine 1-5 /HPF (0-5/HPF); Urine Volume 10mL (spun); WBC Urine 10-30/HPF (0-5/HPF)
== END ==
PROVIDERS: Visit Provider Registered Nurse
DX: N39.0 Urinary tract infection, site not specified (principal)
CPT/HCPCS: 81001; 87086